=== PATIENT | female | born 1970 | race Caucasian/White ===

== ENCOUNTER 2021-08-07 16:29 | Inpatient (IN) | payer BC ==
[~2021-08-07 16:29] MED LIST: Dexamethasone 4 MG/ML 5 ML MDV IVPUSH ONE; Glycopyrrolate 0.2 MG/ML 5 ML MDV IV ONE; Lidocaine 2% 5 ML SDV INJECT ONE; Midazolam 1 MG/ML 2 ML SDV IV ONE; Neostigmine Methylsulfate 10 MG/10 ML MDV IVPUSH ONE; Ondansetron 4 MG/2 ML SDV IVPUSH ONE; Propofol 200 MG/20 ML SDV IV ONE; Rocuronium 100 MG/10 ML MDV IV ONE; Succinylcholine 200 MG/10 ML MDV IV ONE; fentaNYL 100 MCG/2 ML SDV IV ONE
[2021-08-07] MEDS ORDERED: Morphine 2 MG/ML SYRINGE IVPUSH STA (16:45)
[2021-08-07] MEDS ORDERED: Ondansetron 4 MG/2 ML SDV IVPUSH STA (16:45)
[2021-08-07] MEDS ORDERED: Sodium Chloride 0.9% 1,000 ML IV SCH (16:45)
[2021-08-07] MEDS ORDERED: Ketorolac 30 MG/ML SDV IVPUSH STA (16:45)
[2021-08-07] MEDS ORDERED: Iopamidol 755 Mg/ML 100 ML Bottle IV ONE (17:08)
--- NOTE | 2021-08-07 18:20 | EDM.PDOC ---
ED HPI GENERAL MEDICAL PROBLEM - General Stated Complaint: RLQ pain Time Seen by Provider: 08/07/21 16:30 Source of Information: Reports: Patient History Limitations: Reports: No Limitations - History of Present Illness INITIAL COMMENTS - FREE TEXT/NARRATIVE: Patient is a 51 YO WF who presented to the ED from the [facility] because of a RLQ and LLQ pain which started Friday and got worse today. The pain is sharp,10/10 with associated nausea and vomiting X 1. Yesterday she developed fever, chills. There is no urinary symptoms, she didn't have a bowell movement for 3 days now. Bilateral Lower Abdomen Pain Score (Numeric/FACES): 8 - Related Data Allergies Allergy/AdvReac Type Severity Reaction Status Date / Time Latex, Natural Rubber Allergy Rash Verified 08/07/21 19:16 lisinopril Allergy Cough Verified 08/07/21 19:16 Home Meds: Home Meds Losartan [Cozaar] 50 mg PO DAILY 08/07/21 [History] amLODIPine Besylate [Norvasc] 10 mg PO DAILY 08/07/21 [History] atorvaSTATin [Lipitor] 20 mg PO BEDTIME 08/07/21 [History] ED ROS GENERAL - Review of Systems Review Of Systems: See Below Constitutional: Reports: No Symptoms HEENT: Reports: No Symptoms Respiratory: Reports: No Symptoms Cardiovascular: Reports: No Symptoms Endocrine: Reports: No Symptoms GI/Abdominal: Reports: Abdominal Pain, Constipation, Nausea, Vomiting : Reports: No Symptoms Musculoskeletal: Reports: No Symptoms Skin: Reports: No Symptoms Neurological: Reports: No Symptoms ED EXAM, GI/ABD - Physical Exam Exam: See Below Exam Limited By: No Limitations General Appearance: Alert, No Apparent Distress Ears: Normal External Exam, Normal Canal, Hearing Grossly Normal Nose: Normal Inspection, Normal Mucosa, No Blood Throat/Mouth: Normal Inspection, Normal Lips, Normal Teeth, Normal Gums, Normal Oropharynx, Normal Voice Head: Atraumatic, Normocephalic Neck: Normal Inspection, Supple, Non-Tender, Full Range of Motion Respiratory/Chest: No Respiratory Distress, Lungs Clear, Normal Breath Sounds, No Accessory Muscle Use, Chest Non-Tender Cardiovascular: Normal Peripheral Pulses, Regular Rate, Rhythm, No Edema, No Gallop, No JVD, No Murmur, No Rub GI/Abdominal Exam: Normal Bowel Sounds, Soft, Other (Tenderness over the RLQ/LLQ and suprapubic area) Back Exam: Normal Inspection, Full Range of Motion Extremities: Normal Inspection, Normal Range of Motion, Non-Tender, No Pedal Edema, Normal Capillary Refill Neurological: Alert, Oriented, CN II-XII Intact, Normal Cognition, Normal Gait, Normal Reflexes, No Motor/Sensory Deficits Psychiatric: Normal Affect, Normal Mood Skin Exam: Warm Course - Vital Signs Text/Narrative:: Lab/CT resul was reviewed and discussed with patient NS 1 L bolus Zofran 4 mg IV x1 Toradol 30 mg IV x1 Morphine 2 mg IV x1 NPO Covid test-pending Case was discussed with Dr Nugent's Last Recorded V/S: Last Vital Signs Temp 36.9 C 08/08/21 12:00 Pulse 69 08/08/21 12:00 Resp 18 08/08/21 12:00 BP 109/65 08/08/21 12:00 Pulse Ox 96 08/08/21 12:00 - Orders/Labs/Meds Orders: Active Orders 24 hr Category Date Time Status Abdomen Pelvis w Cont [CT] Stat Exams 08/07/21 16:41 Taken Sodium Chloride 0.9% [Normal Saline] 1,000 ml Med 08/07/21 16:45 Active IV ASDIRECTED Sodium Chloride 0.9% [Saline Flush] Med 08/07/21 16:41 Active 10 ml FLUSH ASDIRECTED PRN Sodium Chloride 0.9% [Saline Flush] Med 08/07/21 19:15 Active 10 ml FLUSH ASDIRECTED PRN Peripheral IV Insertion Adult [OM.PC] Routine Oth 08/07/21 19:15 Ordered Saline Lock Insert [OM.PC] Routine Oth 08/07/21 16:41 Ordered Sequential Compression Device [OM.PC] Routine Oth 08/07/21 19:15 Ordered Resuscitation Status Routine Resus Stat 08/07/21 19:15 Ordered Medication Orders Acetaminophen (Acetaminophen 325 Mg Tab) 650 mg PO Q6H PRN PRN Reason: Pain Last Admin: 08/08/21 09:10 Dose: 650 mg Documented by: [id number] Admin: 08/08/21 03:04 Dose: 650 mg Documented by: DIFFCAL Hydrocodone Bitart/Acetaminophen (Acetaminophen/Hydrocodone 325-5 Mg Tab) 1 tab PO Q4H PRN PRN Reason: Pain (mild 1-3) Hydromorphone HCl (Hydromorphone 2 Mg/Ml Sdv) 1 mg IVPUSH Q1H PRN PRN Reason: Pain (moderate 4-6) Last Admin: 08/08/21 13:28 Dose: 1 mg Documented by: TOBI Sodium Chloride (Normal Saline) 1,000 mls @ 999 mls/hr IV ASDIRECTED [facility] Last Admin: 08/07/21 17:32 Dose: 999 mls/hr Documented by: BRENDA Lactated Ringer's (Ringers, Lactated) 1,000 mls @ 125 mls/hr IV ASDIRECTED [facility] Last Admin: 08/08/21 09:09 Dose: 125 mls/hr Documented by: Infusion: 08/08/21 08:00 Dose: 125 mls/hr Documented by: Admin: 08/08/21 00:00 Dose: 125 mls/hr Documented by: Infusion: 08/08/21 00:00 Dose: 125 mls/hr Documented by: Admin: 08/07/21 22:12 Dose: 125 mls/hr Documented by: TIERRA Piperacillin Sod/Tazobactam (Sod 3.375 gm/ Sodium Chloride) 50 mls @ 100 mls/hr IV Q6H [facility] Stop: 08/12/21 23:59 Last Admin: 08/08/21 14:28 Dose: 100 mls/hr Documented by: Admin: 08/08/21 08:22 Dose: 100 mls/hr Documented by: Admin: 08/08/21 02:09 Dose: 100 mls/hr Documented by: HONG Nicotine (Nicotine 21 Mg/24 Hr Patch) 21 mg TRDERM DAILY [facility] Last Admin: 08/08/21 09:10 Dose: 21 mg Documented by: GRAZYNA Promethazine HCl (Promethazine 25 Mg/Ml Sdv) 12.5 mg IM Q6H PRN PRN Reason: Nausea Last Admin: 08/08/21 13:22 Dose: 12.5 mg Documented by: TOBI Sodium Chloride (Sodium Chloride 0.9% 10 Ml Syringe) 10 ml FLUSH ASDIRECTED PRN PRN Reason: Keep Vein Open Last Admin: 08/08/21 02:10 Dose: 10 ml Documented by: HONG Sodium Chloride (Sodium Chloride 0.9% 10 Ml Syringe) 10 ml FLUSH ASDIRECTED PRN PRN Reason: Keep Vein Open Last Admin: 08/08/21 09:11 Dose: 10 ml Documented by: [id number] Admin: 08/08/21 08:23 Dose: 10 ml Documented by: [id number] Labs: Laboratory Tests 08/07/21 08/07/21 08/07/21 Range/Units 16:55 16:55 16:55 WBC 14.6 H (3.0-10.3) x10-3/uL RBC 4.16 (3.60-5.20) x10(6)uL Hgb 14.3 (11.4-15.5) g/dL Hct 42.8 (34.2-48.2) % MCV 103.0 H (76.7-100.5) fL MCH 34.4 H (23.9-33.9) pg MCHC 33.4 (31.9-34.8) g/dL RDW 12.4 (12.3-16.5) % Plt Count 274 (151-488) x10(3)uL MPV 8.8 (7.1-12.4) fL Neut % (Auto) 78.9 H (30.8-76.2) % Lymph % (Auto) 14.5 L (18.4-52.1) % Forrest % (Auto) 5.7 (4.4-15.7) % Eos % (Auto) 0.5 L (0.6-8.1) % Baso % (Auto) 0.4 (0.2-1.5) % Neut # (Auto) 11.5 H (1.5-6.3) x10-3/uL Lymph # (Auto) 2.1 (1.0-4.4) x10-3/uL Forrest # (Auto) 0.8 (0.3-1.0) x10-3/uL Eos # (Auto) 0.1 (0.0-0.8) x10-3/uL Baso # (Auto) 0.1 (0.0-0.1) x10-3/uL Sodium 138 (135-145) mmol/L Potassium 3.6 (3.5-5.3) mmol/L Chloride 101 (100-110) mmol/L Carbon Dioxide 23 (21-32) mmol/L BUN 7 (7-18) mg/dL Creatinine 0.5 L (0.55-1.02) mg/dL Est Cr Clr Drug Dosing TNP Estimated GFR (MDRD) > 60 (>60) BUN/Creatinine Ratio 14.0 (9-20) Glucose 116 (80-116) mg/dL Calcium 9.1 (8.6-10.2) mg/dL Total Bilirubin 0.9 (0.1-1.3) mg/dL AST 13 (5-25) IU/L ALT 36 (12-36) U/L Alkaline Phosphatase 96 (56-112) IU/L Total Protein 7.6 (6.0-8.0) g/dL Albumin 4.3 (3.5-5.2) g/dL Globulin 3.3 g/dL Albumin/Globulin Ratio 1.3 Amylase 47 (25-115) U/L Lipase 112 (73-393) U/L Urine Color (YELLOW) Urine Appearance (CLEAR) Urine pH (5.0-6.5) Ur Specific [place] (1.010-1.025) Urine Protein (NEGATIVE) mg/dL Urine Glucose (UA) (NORMAL) mg/dL Urine Ketones (NEGATIVE) mg/dL Urine Occult Blood (NEGATIVE) Urine Nitrite (NEGATIVE) Urine Bilirubin (NEGATIVE) Urine Urobilinogen (NEGATIVE) mg/dL Ur Leukocyte Esterase (NEGATIVE) U Hyaline Cast (Auto) (NS) Urine RBC (0-5) Urine WBC (0-5) Ur Squamous Epith Cells (NS,R,O) Urine Bacteria (NS) SARS-CoV-2 RNA (AURELIA) (NEGATIVE) 08/07/21 08/07/21 Range/Units 17:30 17:55 WBC (3.0-10.3) x10-3/uL RBC (3.60-5.20) x10(6)uL Hgb (11.4-15.5) g/dL Hct (34.2-48.2) % MCV (76.7-100.5) fL MCH (23.9-33.9) pg MCHC (31.9-34.8) g/dL RDW (12.3-16.5) % Plt Count (151-488) x10(3)uL MPV (7.1-12.4) fL Neut % (Auto) (30.8-76.2) % Lymph % (Auto) (18.4-52.1) % Forrest % (Auto) (4.4-15.7) % Eos % (Auto) (0.6-8.1) % Baso % (Auto) (0.2-1.5) % Neut # (Auto) (1.5-6.3) x10-3/uL Lymph # (Auto) (1.0-4.4) x10-3/uL Forrest # (Auto) (0.3-1.0) x10-3/uL Eos # (Auto) (0.0-0.8) x10-3/uL Baso # (Auto) (0.0-0.1) x10-3/uL Sodium (135-145) mmol/L Potassium (3.5-5.3) mmol/L Chloride (100-110) mmol/L Carbon Dioxide (21-32) mmol/L BUN (7-18) mg/dL Creatinine (0.55-1.02) mg/dL Est Cr Clr Drug Dosing Estimated GFR (MDRD) (>60) BUN/Creatinine Ratio (9-20) Glucose (80-116) mg/dL Calcium (8.6-10.2) mg/dL Total Bilirubin (0.1-1.3) mg/dL AST (5-25) IU/L ALT (12-36) U/L Alkaline Phosphatase (56-112) IU/L Total Protein (6.0-8.0) g/dL Albumin (3.5-5.2) g/dL Globulin g/dL Albumin/Globulin Ratio Amylase (25-115) U/L Lipase (73-393) U/L Urine Color Yellow (YELLOW) Urine Appearance Clear (CLEAR) Urine pH 5.0 (5.0-6.5) Ur Specific [place] 1.020 (1.010-1.025) Urine Protein Negative (NEGATIVE) mg/dL Urine Glucose (UA) Normal (NORMAL) mg/dL Urine Ketones 50 H (NEGATIVE) mg/dL Urine Occult Blood Moderate H (NEGATIVE) Urine Nitrite Negative (NEGATIVE) Urine Bilirubin Negative (NEGATIVE) Urine Urobilinogen Normal (NEGATIVE) mg/dL Ur Leukocyte Esterase Negative (NEGATIVE) U Hyaline Cast (Auto) Few H (NS) Urine RBC 5-10 H (0-5) Urine WBC 0-5 (0-5) Ur Squamous Epith Cells Few H (NS,R,O) Urine Bacteria Few H (NS) SARS-CoV-2 RNA (AURELIA) Negative (NEGATIVE) Meds: Medications Generic Name Dose Route Start Last Admin Trade Name Freq PRN Reason Stop Dose Admin Acetaminophen 650 mg 08/08/21 02:49 08/08/21 09:10 Acetaminophen 325 Mg Tab PO 650 mg Q6H PRN Administration Pain Hydrocodone Bitart/Acetaminophen 1 tab 08/07/21 21:04 Acetaminophen/Hydrocodone 325-5 Mg Tab PO Q4H PRN Pain (mild 1-3) Hydromorphone HCl 1 mg 08/07/21 21:04 08/08/21 13:28 Hydromorphone 2 Mg/Ml Sdv IVPUSH 1 mg Q1H PRN Administration Pain (moderate 4-6) Sodium Chloride 1,000 mls @ 999 mls/hr 08/07/21 16:45 08/07/21 17:32 Normal Saline IV 999 mls/hr ASDIRECTED ANA LILIA Administration Lactated Ringer's 1,000 mls @ 125 mls/hr 08/07/21 21:15 08/08/21 09:09 Ringers, Lactated IV 125 mls/hr ASDIRECTED ANA LILIA Administration Piperacillin Sod/Tazobactam 50 mls @ 100 mls/hr 08/08/21 02:00 08/08/21 14:28 Sod 3.375 gm/ Sodium Chloride IV 08/12/21 23:59 100 mls/hr Q6H ANA LILIA Administration Nicotine 21 mg 08/08/21 09:00 08/08/21 09:10 Nicotine 21 Mg/24 Hr Patch TRDERM 21 mg DAILY ANA LILIA Administration Promethazine HCl 12.5 mg 08/07/21 21:04 08/08/21 13:22 Promethazine 25 Mg/Ml Sdv IM 12.5 mg Q6H PRN Administration Nausea Sodium Chloride 10 ml 08/07/21 16:41 08/08/21 02:10 Sodium Chloride 0.9% 10 Ml Syringe FLUSH 10 ml ASDIRECTED PRN Administration Keep Vein Open Sodium Chloride 10 ml 08/07/21 19:15 08/08/21 09:11 Sodium Chloride 0.9% 10 Ml Syringe FLUSH 10 ml ASDIRECTED PRN Administration Keep Vein Open Discontinued Medications Generic Name Dose Route Start Last Admin Trade Name Freq PRN Reason Stop Dose Admin Cefoxitin Sodium 2 gm 08/07/21 18:41 08/07/21 18:47 Cefoxitin 2 Gm Vial IVPUSH 08/07/21 18:42 2 gm ONETIME ONE Administration Lactated Ringer's 1,000 mls @ 125 mls/hr 08/07/21 19:15 08/07/21 19:55 Ringers, Lactated IV 125 mls/hr ASDIRECTED ANA LILIA Administration Piperacillin Sod/Tazobactam 50 mls @ 100 mls/hr 08/07/21 20:15 08/08/21 04:49 Sod 3.375 gm/ Sodium Chloride IV Not Given Q6H ANA LILIA Iopamidol 80 ml 08/07/21 17:08 08/07/21 17:47 Iopamidol 755 Mg/Ml 100 Ml Bottle IV 08/07/21 17:09 80 ml . DIRECTED ONE Administration Ketorolac Tromethamine 30 mg 08/07/21 16:45 08/07/21 17:32 Ketorolac 30 Mg/Ml Sdv IVPUSH 08/07/21 16:46 30 mg NOW STA Administration Morphine Sulfate 2 mg 08/07/21 16:45 08/07/21 17:38 Morphine 2 Mg/Ml Syringe IVPUSH 08/07/21 16:46 2 mg NOW STA Administration Ondansetron HCl 4 mg 08/07/21 16:45 08/07/21 17:32 Ondansetron 4 Mg/2 Ml Sdv IVPUSH 08/07/21 16:46 4 mg NOW STA Administration Departure - Departure Time of Disposition: 18:25 Disposition: Refer to Observation Condition: Good Clinical Impression: Acute appendicitis, Peritonitis - Discharge Information Sepsis Event Note (ED) - Evaluation Sepsis Screening Result: No Definite Risk - My Orders Last 24 Hours: My Active Orders 08/07/21 16:41 Abdomen Pelvis w Cont [CT] Stat Sodium Chloride 0.9% [Saline Flush] 10 ml FLUSH ASDIRECTED PRN Saline Lock Insert [OM.PC] Routine 08/07/21 16:45 Sodium Chloride 0.9% [Normal Saline] 1,000 ml IV ASDIRECTED - Assessment/Plan Last 24 Hours: My Active Orders 08/07/21 16:41 Abdomen Pelvis w Cont [CT] Stat Sodium Chloride 0.9% [Saline Flush] 10 ml FLUSH ASDIRECTED PRN Saline Lock Insert [OM.PC] Routine 08/07/21 16:45 Sodium Chloride 0.9% [Normal Saline] 1,000 ml IV ASDIRECTED
[2021-08-07] MEDS ORDERED: cefOXitin 2 GM Vial IVPUSH ONE (18:41)
[2021-08-07] MEDS ORDERED: Lactated Ringers 1,000 ML IV SCH (19:15)
[2021-08-07] MEDS ORDERED: Piperacillin/Tazobactam 3.375 GM in Sodium Chloride 0.9% 50 ML IV SCH (20:15)
--- NOTE | 2021-08-07 21:04 | PCM.OPNOTE ---
- General Post-Op/Procedure Note Date of Surgery/Procedure: 08/07/21 Operative Procedure(s): Lap appy Pre Op Diagnosis: Perforated appy Post-Op Diagnosis: Same Anesthesia Technique: General ET Tube Primary Surgeon: Garrett Graves EBDong in mLs: 5 Complications: None Condition: Stable
--- NOTE | 2021-08-07 21:04 | PCM.HPR ---
H & P Addendum review - H & P Addendum Review Date of Original H & P: 08/07/21 Date Reviewed: 08/07/21 Time Reviewed: 19:00 Patient was Examined: No Changes (Ct and labs reviewed, pt examined. Consistent with acute appy. Will proceed with surgery. Risks and complications reviewed, consent obtained.)
[2021-08-07] MEDS: Lactated Ringers 1,000 ML IV SCH (22:12)
[2021-08-08] MEDS: Piperacillin/Tazobactam 3.375 GM in Sodium Chloride 0.9% 50 ML IV SCH ×4 (02:09→20:08)
[2021-08-08] MEDS: Sodium Chloride 0.9% 10 ML Syringe FLUSH PRN ×6 (02:10→20:40)
[2021-08-08] MEDS: Acetaminophen 325 MG Tab PO PRN ×2 (03:04→09:10)
--- NOTE | 2021-08-08 07:53 | OR ---
DATE OF OPERATION: 08/07/2021 SURGEON: Garrett Graves MD PREOPERATIVE DIAGNOSIS: Acute appendicitis. POSTOPERATIVE DIAGNOSIS: Perforated appendicitis. PROCEDURE: Laparoscopic appendectomy. ANESTHESIA: General. PROCEDURE IN DETAIL: The patient was brought to the operating room where general endotracheal anesthesia was administered. The abdomen was prepped and draped sterilely. An infraumbilical incision was made and extended into the peritoneal cavity without difficulty. The Huber cannula was introduced and pneumoperitoneum obtained. The patient was placed in Trendelenburg position and rotated to the left. 5 mm ports were placed in the suprapubic position and another one prison between the umbilicus and pubis. Exploration revealed an inflammatory appendix adherent to the right pelvic sidewall. By moving the small bowel and cecum, I was able to identify the inflammatory mass. I started to peel this off the pelvic sidewall and a contained perforation was apparent with stool leakage. As I was working on the appendix, stool was leaking from at least 2 spots. The tip of the appendix was found in the pelvis and I was able to deliver this cephalad into the abdomen. Because of the thick inflamed mesoappendix, I decided to transect the base of the appendix first and work retrograde. A window was made at the base of the appendix. I did have to clear off some adhesions and indurated fatty tissue off the base of the cecum to allow for a good staple line. An Endo-SHAWN 3.5 mm stapler was used to transect the appendix approximately 2 cm proximal to the main perforation. I was then able to take down the mesoappendix with 2 applications of the Endo-SHAWN 2.5 mm stapler. The main branch of the appendiceal artery did have some minimal oozing, so I did place 2 hemoclips on this. The appendix was placed in an Endopouch and brought out through the umbilical incision. Right lower quadrant was irrigated with a liter of saline. Any stool was removed. Hemostasis was assured. Ports were removed under direct vision and remained hemostatic. Umbilical fascia was closed with [id number] 0 Vicryl. Skin was closed with 4-0 Vicryl subcuticular sutures. Benzoin and Steri-Strips were placed and Band- Aids applied. The patient tolerated the procedure well. Estimated blood loss 5 mL. She returned to postanesthesia in stable condition. /[id number] MARYURI/HANY DOBBS
[2021-08-08] MEDS: Lactated Ringers 1,000 ML IV SCH ×3 (09:09→18:42)
[2021-08-08] MEDS: Nicotine 21 MG/24 Hr Patch TRDERM SCH (09:10)
--- NOTE | 2021-08-08 13:06 | PCM.SURGPN ---
- General Info Date of Service: 08/08/21 POD#: 1 Functional Status: Reports: Pain Controlled, Urinating, Other (no bowel fct yet) - Review of Systems General: Reports: No Symptoms Cardiovascular: Reports: No Symptoms Gastrointestinal: Reports: No Symptoms. Denies: Flatus - Patient Data Vitals - Most Recent: Last Vital Signs Temp 97.1 F 08/08/21 08:00 Pulse 67 08/08/21 08:00 Resp 20 08/08/21 08:00 BP 117/72 08/08/21 08:00 Pulse Ox 97 08/08/21 08:00 Weight - Most Recent: 72.348 kg I&O - Last 24 Hours: Intake & Output 08/07/21 08/08/21 08/08/21 22:59 06:59 14:59 Intake Total 10 Balance 10 Lab Results Last 24 Hrs: Laboratory Results - last 24 hr 08/07/21 08/07/21 08/07/21 Range/Units 16:55 16:55 16:55 WBC 14.6 H (3.0-10.3) x10-3/uL RBC 4.16 (3.60-5.20) x10(6)uL Hgb 14.3 (11.4-15.5) g/dL Hct 42.8 (34.2-48.2) % MCV 103.0 H (76.7-100.5) fL MCH 34.4 H (23.9-33.9) pg MCHC 33.4 (31.9-34.8) g/dL RDW 12.4 (12.3-16.5) % Plt Count 274 (151-488) x10(3)uL MPV 8.8 (7.1-12.4) fL Neut % (Auto) 78.9 H (30.8-76.2) % Lymph % (Auto) 14.5 L (18.4-52.1) % [place] % (Auto) 5.7 (4.4-15.7) % Eos % (Auto) 0.5 L (0.6-8.1) % Baso % (Auto) 0.4 (0.2-1.5) % Neut # (Auto) 11.5 H (1.5-6.3) x10-3/uL Lymph # (Auto) 2.1 (1.0-4.4) x10-3/uL [place] # (Auto) 0.8 (0.3-1.0) x10-3/uL Eos # (Auto) 0.1 (0.0-0.8) x10-3/uL Baso # (Auto) 0.1 (0.0-0.1) x10-3/uL Add Manual Diff Neutrophils % (Manual) (46-82) % Band Neutrophils % (0-6) % Lymphocytes % (Manual) (13-37) % Monocytes % (Manual) (4-12) % Sodium 138 (135-145) mmol/L Potassium 3.6 (3.5-5.3) mmol/L Chloride 101 (100-110) mmol/L Carbon Dioxide 23 (21-32) mmol/L BUN 7 (7-18) mg/dL Creatinine 0.5 L (0.55-1.02) mg/dL Est Cr Clr Drug Dosing TNP Estimated GFR (MDRD) > 60 (>60) BUN/Creatinine Ratio 14.0 (9-20) Glucose 116 (80-116) mg/dL Calcium 9.1 (8.6-10.2) mg/dL Total Bilirubin 0.9 (0.1-1.3) mg/dL AST 13 (5-25) IU/L ALT 36 (12-36) U/L Alkaline Phosphatase 96 (56-112) IU/L Total Protein 7.6 (6.0-8.0) g/dL Albumin 4.3 (3.5-5.2) g/dL Globulin 3.3 g/dL Albumin/Globulin Ratio 1.3 Amylase 47 (25-115) U/L Lipase 112 (73-393) U/L Urine Color (YELLOW) Urine Appearance (CLEAR) Urine pH (5.0-6.5) Ur Specific [place] (1.010-1.025) Urine Protein (NEGATIVE) mg/dL Urine Glucose (UA) (NORMAL) mg/dL Urine Ketones (NEGATIVE) mg/dL Urine Occult Blood (NEGATIVE) Urine Nitrite (NEGATIVE) Urine Bilirubin (NEGATIVE) Urine Urobilinogen (NEGATIVE) mg/dL Ur Leukocyte Esterase (NEGATIVE) U Hyaline Cast (Auto) (NS) Urine RBC (0-5) Urine WBC (0-5) Ur Squamous Epith Cells (NS,R,O) Urine Bacteria (NS) SARS-CoV-2 RNA (AURELIA) (NEGATIVE) 08/07/21 08/07/21 08/08/21 Range/Units 17:30 17:55 06:35 WBC 19.0 H (3.0-10.3) x10-3/uL RBC 3.64 (3.60-5.20) x10(6)uL Hgb 12.6 (11.4-15.5) g/dL Hct 37.7 (34.2-48.2) % MCV 103.4 H (76.7-100.5) fL MCH 34.5 H (23.9-33.9) pg MCHC 33.4 (31.9-34.8) g/dL RDW 12.4 (12.3-16.5) % Plt Count 240 (151-488) x10(3)uL MPV 9.1 (7.1-12.4) fL Neut % (Auto) (30.8-76.2) % Lymph % (Auto) (18.4-52.1) % [place] % (Auto) (4.4-15.7) % Eos % (Auto) (0.6-8.1) % Baso % (Auto) (0.2-1.5) % Neut # (Auto) (1.5-6.3) x10-3/uL Lymph # (Auto) (1.0-4.4) x10-3/uL [place] # (Auto) (0.3-1.0) x10-3/uL Eos # (Auto) (0.0-0.8) x10-3/uL Baso # (Auto) (0.0-0.1) x10-3/uL Add Manual Diff Yes Neutrophils % (Manual) 86 H (46-82) % Band Neutrophils % 6 (0-6) % Lymphocytes % (Manual) 6 L (13-37) % Monocytes % (Manual) 2 L (4-12) % Sodium (135-145) mmol/L Potassium (3.5-5.3) mmol/L Chloride (100-110) mmol/L Carbon Dioxide (21-32) mmol/L BUN (7-18) mg/dL Creatinine (0.55-1.02) mg/dL Est Cr Clr Drug Dosing Estimated GFR (MDRD) (>60) BUN/Creatinine Ratio (9-20) Glucose (80-116) mg/dL Calcium (8.6-10.2) mg/dL Total Bilirubin (0.1-1.3) mg/dL AST (5-25) IU/L ALT (12-36) U/L Alkaline Phosphatase (56-112) IU/L Total Protein (6.0-8.0) g/dL Albumin (3.5-5.2) g/dL Globulin g/dL Albumin/Globulin Ratio Amylase (25-115) U/L Lipase (73-393) U/L Urine Color Yellow (YELLOW) Urine Appearance Clear (CLEAR) Urine pH 5.0 (5.0-6.5) Ur Specific [place] 1.020 (1.010-1.025) Urine Protein Negative (NEGATIVE) mg/dL Urine Glucose (UA) Normal (NORMAL) mg/dL Urine Ketones 50 H (NEGATIVE) mg/dL Urine Occult Blood Moderate H (NEGATIVE) Urine Nitrite Negative (NEGATIVE) Urine Bilirubin Negative (NEGATIVE) Urine Urobilinogen Normal (NEGATIVE) mg/dL Ur Leukocyte Esterase Negative (NEGATIVE) U Hyaline Cast (Auto) Few H (NS) Urine RBC 5-10 H (0-5) Urine WBC 0-5 (0-5) Ur Squamous Epith Cells Few H (NS,R,O) Urine Bacteria Few H (NS) SARS-CoV-2 RNA (AURELIA) Negative (NEGATIVE) Med Orders - Current: Current Medications Acetaminophen (Acetaminophen 325 Mg Tab) 650 mg PO Q6H PRN PRN Reason: Pain Last Admin: 08/08/21 09:10 Dose: 650 mg Documented by: Hydrocodone Bitart/Acetaminophen (Acetaminophen/Hydrocodone 325-5 Mg Tab) 1 tab PO Q4H PRN PRN Reason: Pain (mild 1-3) Hydromorphone HCl (Hydromorphone 2 Mg/Ml Sdv) 1 mg IVPUSH Q1H PRN PRN Reason: Pain (moderate 4-6) Sodium Chloride (Normal Saline) 1,000 mls @ 999 mls/hr IV ASDIRECTED ANA LILIA Last Admin: 08/07/21 17:32 Dose: 999 mls/hr Documented by: Lactated Ringer's (Ringers, Lactated) 1,000 mls @ 125 mls/hr IV ASDIRECTED [facility] Last Admin: 08/08/21 09:09 Dose: 125 mls/hr Documented by: Piperacillin Sod/Tazobactam (Sod 3.375 gm/ Sodium Chloride) 50 mls @ 100 mls/hr IV Q6H [facility] Stop: 08/12/21 23:59 Last Admin: 08/08/21 08:22 Dose: 100 mls/hr Documented by: Nicotine (Nicotine 21 Mg/24 Hr Patch) 21 mg TRDERM DAILY [facility] Last Admin: 08/08/21 09:10 Dose: 21 mg Documented by: Promethazine HCl (Promethazine 25 Mg/Ml Sdv) 12.5 mg IM Q6H PRN PRN Reason: Nausea Sodium Chloride (Sodium Chloride 0.9% 10 Ml Syringe) 10 ml FLUSH ASDIRECTED PRN PRN Reason: Keep Vein Open Last Admin: 08/08/21 02:10 Dose: 10 ml Documented by: Sodium Chloride (Sodium Chloride 0.9% 10 Ml Syringe) 10 ml FLUSH ASDIRECTED PRN PRN Reason: Keep Vein Open Last Admin: 08/08/21 09:11 Dose: 10 ml Documented by: Discontinued Medications Cefoxitin Sodium (Cefoxitin 2 Gm Vial) 2 gm IVPUSH ONETIME ONE Stop: 08/07/21 18:42 Last Admin: 08/07/21 18:47 Dose: 2 gm Documented by: Lactated Ringer's (Ringers, Lactated) 1,000 mls @ 125 mls/hr IV ASDIRECTED [facility] Last Admin: 08/07/21 19:55 Dose: 125 mls/hr Documented by: Piperacillin Sod/Tazobactam (Sod 3.375 gm/ Sodium Chloride) 50 mls @ 100 mls/hr IV Q6H [facility] Last Admin: 08/08/21 04:49 Dose: Not Given Documented by: Iopamidol (Iopamidol 755 Mg/Ml 100 Ml Bottle) 80 ml IV . DIRECTED ONE Stop: 08/07/21 17:09 Last Admin: 08/07/21 17:47 Dose: 80 ml Documented by: Ketorolac Tromethamine (Ketorolac 30 Mg/Ml Sdv) 30 mg IVPUSH NOW STA Stop: 08/07/21 16:46 Last Admin: 08/07/21 17:32 Dose: 30 mg Documented by: Morphine Sulfate (Morphine 2 Mg/Ml Syringe) 2 mg IVPUSH NOW STA Stop: 08/07/21 16:46 Last Admin: 08/07/21 17:38 Dose: 2 mg Documented by: Ondansetron HCl (Ondansetron 4 Mg/2 Ml Sdv) 4 mg IVPUSH NOW STA Stop: 08/07/21 16:46 Last Admin: 08/07/21 17:32 Dose: 4 mg Documented by: - Exam Wound/Incisions: Dressing Dry and Intact General: Alert, Oriented GI/Abdominal Exam: Soft, Distended Sepsis Event Note - Evaluation Sepsis Screening Result: No Definite Risk - Focused Exam Vital Signs: Vital Signs Temp Pulse Resp BP Pulse Ox Pulse Ox 08/08/21 08:00 97.1 F 67 20 117/72 97 97 - Problem List Review Problem List Initiated/Reviewed/Updated: Yes - My Orders Last 24 Hours: Active Orders 24 hr Category Date Time Status Patient Status [ADT] Routine ADT 08/07/21 21:05 Active May Shower [RC] ASDIRECTED Care 08/07/21 21:04 Active Oxygen Therapy [RC] 08 Care 08/07/21 21:05 Active RT Incentive Spirometry [RC] Q2HWA Care 08/07/21 21:04 Active Vital Signs [RC] 00,04,08,12,16,20 Care 08/07/21 21:05 Active Clear Liquid Diet [DIET] Diet 08/08/21 Breakfast Ordered Abdomen Pelvis w Cont [CT] Stat Exams 08/07/21 16:41 Taken CBC WITH AUTO DIFF [HEME] Routine Lab 08/09/21 07:00 Ordered Acetaminophen [TylenoL] Med 08/08/21 02:49 Active 650 mg PO Q6H PRN Acetaminophen/HYDROcodone [[place] 325-5 MG] Med 08/07/21 21:04 Active 1 tab PO Q4H PRN HYDROmorphone [Dilaudid] Med 08/07/21 21:04 Active 1 mg IVPUSH Q1H PRN Lactated Ringers [Ringers, Lactated] 1,000 ml Med 08/07/21 21:15 Active IV ASDIRECTED Nicotine [Habitrol] Med 08/08/21 09:00 Active 21 mg TRDERM DAILY Piperacillin/Tazobactam [Zosyn] 3.375 gm Med 08/08/21 02:00 Active Sodium Chloride 0.9% [Normal Saline] 50 ml IV Q6H Promethazine [Phenergan] Med 08/07/21 21:04 Active 12.5 mg IM Q6H PRN Sodium Chloride 0.9% [Normal Saline] 1,000 ml Med 08/07/21 16:45 Active IV ASDIRECTED Sodium Chloride 0.9% [Saline Flush] Med 08/07/21 16:41 Active 10 ml FLUSH ASDIRECTED PRN Sodium Chloride 0.9% [Saline Flush] Med 08/07/21 19:15 Active 10 ml FLUSH ASDIRECTED PRN Peripheral IV Insertion Adult [OM.PC] Routine Oth 08/07/21 19:15 Ordered Saline Lock Insert [OM.PC] Routine Oth 08/07/21 16:41 Ordered Sequential Compression Device [OM.PC] Routine Oth 08/07/21 19:15 Ordered Resuscitation Status Routine Resus Stat 08/07/21 19:15 Ordered Medication Orders Acetaminophen (Acetaminophen 325 Mg Tab) 650 mg PO Q6H PRN PRN Reason: Pain Last Admin: 08/08/21 09:10 Dose: 650 mg Documented by: [id number] Admin: 08/08/21 03:04 Dose: 650 mg Documented by: HONG Hydrocodone Bitart/Acetaminophen (Acetaminophen/Hydrocodone 325-5 Mg Tab) 1 tab PO Q4H PRN PRN Reason: Pain (mild 1-3) Hydromorphone HCl (Hydromorphone 2 Mg/Ml Sdv) 1 mg IVPUSH Q1H PRN PRN Reason: Pain (moderate 4-6) Sodium Chloride (Normal Saline) 1,000 mls @ 999 mls/hr IV ASDIRECTED ANA L[facility]IA Last Admin: 08/07/21 17:32 Dose: 999 mls/hr Documented by: BRENDA Lactated Ringer's (Ringers, Lactated) 1,000 mls @ 125 mls/hr IV ASDIRECTED ANA L[facility]IA Last Admin: 08/08/21 09:09 Dose: 125 mls/hr Documented by: Infusion: 08/08/21 08:00 Dose: 125 mls/hr Documented by: Admin: 08/08/21 00:00 Dose: 125 mls/hr Documented by: Infusion: 08/08/21 00:00 Dose: 125 mls/hr Documented by: Admin: 08/07/21 22:12 Dose: 125 mls/hr Documented by: TIERRA Piperacillin Sod/Tazobactam (Sod 3.375 gm/ Sodium Chloride) 50 mls @ 100 mls/hr IV Q6H [facility] Stop: 08/12/21 23:59 Last Admin: 08/08/21 08:22 Dose: 100 mls/hr Documented by: Admin: 08/08/21 02:09 Dose: 100 mls/hr Documented by: HONG Nicotine (Nicotine 21 Mg/24 Hr Patch) 21 mg TRDERM DAILY [facility] Last Admin: 08/08/21 09:10 Dose: 21 mg Documented by: GRAZYNA Promethazine HCl (Promethazine 25 Mg/Ml Sdv) 12.5 mg IM Q6H PRN PRN Reason: Nausea Sodium Chloride (Sodium Chloride 0.9% 10 Ml Syringe) 10 ml FLUSH ASDIRECTED PRN PRN Reason: Keep Vein Open Last Admin: 08/08/21 02:10 Dose: 10 ml Documented by: HONG Sodium Chloride (Sodium Chloride 0.9% 10 Ml Syringe) 10 ml FLUSH ASDIRECTED PRN PRN Reason: Keep Vein Open Last Admin: 08/08/21 09:11 Dose: 10 ml Documented by: Admin: 08/08/21 08:23 Dose: 10 ml Documented by: GRAZYNA - Assessment Assessment (Free Text/Narrative):: Doing well POD #1 WBC 19K P) Cont as is,
[2021-08-08] MEDS: Promethazine 25 MG/ML SDV IM PRN (13:22)
[2021-08-08] MEDS: HYDROmorphone 2 MG/ML SDV IVPUSH PRN ×3 (13:28→20:13)
[2021-08-08] MEDS: Acetaminophen/HYDROcodone 325-5 MG Tab PO PRN ×2 (18:41→22:50)
[2021-08-09] MEDS: Piperacillin/Tazobactam 3.375 GM in Sodium Chloride 0.9% 50 ML IV SCH ×4 (02:27→20:18)
[2021-08-09] MEDS: Sodium Chloride 0.9% 10 ML Syringe FLUSH PRN ×5 (02:30→20:30)
[2021-08-09] MEDS: Lactated Ringers 1,000 ML IV SCH (03:05)
[2021-08-09] MEDS: Acetaminophen 325 MG Tab PO PRN ×3 (03:50→16:09)
[2021-08-09] MEDS: Nicotine 21 MG/24 Hr Patch TRDERM SCH (08:00)
--- NOTE | 2021-08-09 13:49 | PCM.SURGPN ---
- General Info Date of Service: 08/09/21 POD#: 2 Functional Status: Reports: Pain Controlled, Tolerating Diet - Review of Systems General: Reports: No Symptoms, Fever (low grade) Cardiovascular: Reports: No Symptoms Gastrointestinal: Reports: Abdominal Pain (better), Flatus - Patient Data Vitals - Most Recent: Last Vital Signs Temp 99.8 F 08/09/21 12:45 Pulse 90 08/09/21 12:45 Resp 18 08/09/21 12:45 BP 130/77 08/09/21 12:45 Pulse Ox 94 L 08/09/21 12:45 Weight - Most Recent: 72.348 kg I&O - Last 24 Hours: Intake & Output 08/08/21 08/09/21 08/09/21 22:59 06:59 14:59 Intake Total 1563 1025 282 Balance 1563 1025 282 Lab Results Last 24 Hrs: Laboratory Results - last 24 hr 08/09/21 Range/Units 06:25 WBC 12.9 H (3.0-10.3) x10-3/uL RBC 3.49 L (3.60-5.20) x10(6)uL Hgb 12.3 (11.4-15.5) g/dL Hct 36.3 (34.2-48.2) % MCV 103.9 H (76.7-100.5) fL MCH 35.3 H (23.9-33.9) pg MCHC 34.0 (31.9-34.8) g/dL RDW 12.6 (12.3-16.5) % Plt Count 228 (151-488) x10(3)uL MPV 9.2 (7.1-12.4) fL Add Manual Diff Yes Neutrophils % (Manual) 85 H (46-82) % Band Neutrophils % 1 (0-6) % Lymphocytes % (Manual) 12 L (13-37) % Monocytes % (Manual) 2 L (4-12) % Med Orders - Current: Current Medications Acetaminophen (Acetaminophen 325 Mg Tab) 650 mg PO Q6H PRN PRN Reason: Pain Last Admin: 08/09/21 10:22 Dose: 650 mg Documented by: Hydrocodone Bitart/Acetaminophen (Acetaminophen/Hydrocodone 325-5 Mg Tab) 1 tab PO Q4H PRN PRN Reason: Pain (mild 1-3) Last Admin: 08/08/21 22:50 Dose: 1 tab Documented by: Sodium Chloride (Normal Saline) 1,000 mls @ 999 mls/hr IV ASDIRECTED [facility] Last Admin: 08/07/21 17:32 Dose: 999 mls/hr Documented by: Lactated Ringer's (Ringers, Lactated) 1,000 mls @ 50 mls/hr IV ASDIRECTED [facility] Last Infusion: 08/09/21 09:30 Dose: 50 mls/hr Documented by: Piperacillin Sod/Tazobactam (Sod 3.375 gm/ Sodium Chloride) 50 mls @ 100 mls/hr IV Q6H [facility] Stop: 08/12/21 23:59 Last Admin: 08/09/21 13:32 Dose: 100 mls/hr Documented by: Ibuprofen (Ibuprofen 600 Mg Tab) 600 mg PO Q6H PRN PRN Reason: Pain Nicotine (Nicotine 21 Mg/24 Hr Patch) 21 mg TRDERM DAILY [facility] Last Admin: 08/09/21 08:00 Dose: 21 mg Documented by: Promethazine HCl (Promethazine 25 Mg/Ml Sdv) 12.5 mg IM Q6H PRN PRN Reason: Nausea Last Admin: 08/08/21 13:22 Dose: 12.5 mg Documented by: Sodium Chloride (Sodium Chloride 0.9% 10 Ml Syringe) 10 ml FLUSH ASDIRECTED PRN PRN Reason: Keep Vein Open Last Admin: 08/09/21 10:23 Dose: 10 ml Documented by: Sodium Chloride (Sodium Chloride 0.9% 10 Ml Syringe) 10 ml FLUSH ASDIRECTED PRN PRN Reason: Keep Vein Open Last Admin: 08/08/21 09:11 Dose: 10 ml Documented by: Discontinued Medications Cefoxitin Sodium (Cefoxitin 2 Gm Vial) 2 gm IVPUSH ONETIME ONE Stop: 08/07/21 18:42 Last Admin: 08/07/21 18:47 Dose: 2 gm Documented by: Hydromorphone HCl (Hydromorphone 2 Mg/Ml Sdv) 1 mg IVPUSH Q1H PRN PRN Reason: Pain (moderate 4-6) Last Admin: 08/08/21 20:13 Dose: 1 mg Documented by: Lactated Ringer's (Ringers, Lactated) 1,000 mls @ 125 mls/hr IV ASDIRECTED [facility] Last Admin: 08/07/21 19:55 Dose: 125 mls/hr Documented by: Piperacillin Sod/Tazobactam (Sod 3.375 gm/ Sodium Chloride) 50 mls @ 100 mls/hr IV Q6H [facility] Last Admin: 08/08/21 04:49 Dose: Not Given Documented by: Iopamidol (Iopamidol 755 Mg/Ml 100 Ml Bottle) 80 ml IV . DIRECTED ONE Stop: 08/07/21 17:09 Last Admin: 08/07/21 17:47 Dose: 80 ml Documented by: Ketorolac Tromethamine (Ketorolac 30 Mg/Ml Sdv) 30 mg IVPUSH NOW STA Stop: 08/07/21 16:46 Last Admin: 08/07/21 17:32 Dose: 30 mg Documented by: Morphine Sulfate (Morphine 2 Mg/Ml Syringe) 2 mg IVPUSH NOW STA Stop: 08/07/21 16:46 Last Admin: 08/07/21 17:38 Dose: 2 mg Documented by: Ondansetron HCl (Ondansetron 4 Mg/2 Ml Sdv) 4 mg IVPUSH NOW STA Stop: 08/07/21 16:46 Last Admin: 08/07/21 17:32 Dose: 4 mg Documented by: - Exam Wound/Incisions: Healing Well, Dressing Dry and Intact GI/Abdominal Exam: Soft, Non-Tender Sepsis Event Note - Evaluation Sepsis Screening Result: No Definite Risk - Focused Exam Vital Signs: Vital Signs Temp Pulse Resp BP Pulse Ox Pulse Ox 08/09/21 12:45 99.8 F 90 18 130/77 94 L 08/09/21 07:30 99.3 F 86 16 112/71 94 L 94 L 08/09/21 04:00 97 F 76 18 108/67 95 - Problem List Review Problem List Initiated/Reviewed/Updated: Yes - My Orders Last 24 Hours: Active Orders 24 hr Category Date Time Status Soft Diet [DIET] Diet 08/09/21 Lunch Active CBC WITH AUTO DIFF [HEME] Routine Lab 08/10/21 07:00 Ordered Ibuprofen [Motrin] Med 08/09/21 09:28 Active 600 mg PO Q6H PRN Medication Orders Acetaminophen (Acetaminophen 325 Mg Tab) 650 mg PO Q6H PRN PRN Reason: Pain Last Admin: 08/09/21 10:22 Dose: 650 mg Documented by: Admin: 08/09/21 03:50 Dose: 650 mg Documented by: Admin: 08/08/21 09:10 Dose: 650 mg Documented by: Admin: 08/08/21 03:04 Dose: 650 mg Documented by: HONG Hydrocodone Bitart/Acetaminophen (Acetaminophen/Hydrocodone 325-5 Mg Tab) 1 tab PO Q4H PRN PRN Reason: Pain (mild 1-3) Last Admin: 08/08/21 22:50 Dose: 1 tab Documented by: Admin: 08/08/21 18:41 Dose: 1 tab Documented by: GRAZYNA Sodium Chloride (Normal Saline) 1,000 mls @ 999 mls/hr IV ASDIRECTED [facility] Last Admin: 08/07/21 17:32 Dose: 999 mls/hr Documented by: BRENDA Lactated Ringer's (Ringers, Lactated) 1,000 mls @ 50 mls/hr IV ASDIRECTED [facility] Last Infusion: 08/09/21 09:30 Dose: 50 mls/hr Documented by: Admin: 08/09/21 03:05 Dose: 125 mls/hr Documented by: Infusion: 08/09/21 03:05 Dose: 125 mls/hr Documented by: Admin: 08/08/21 18:42 Dose: 125 mls/hr Documented by: Infusion: 08/08/21 17:09 Dose: 125 mls/hr Documented by: Admin: 08/08/21 09:09 Dose: 125 mls/hr Documented by: Infusion: 08/08/21 08:00 Dose: 125 mls/hr Documented by: Admin: 08/08/21 00:00 Dose: 125 mls/hr Documented by: Infusion: 08/08/21 00:00 Dose: 125 mls/hr Documented by: Admin: 08/07/21 22:12 Dose: 125 mls/hr Documented by: TIERRA Piperacillin Sod/Tazobactam (Sod 3.375 gm/ Sodium Chloride) 50 mls @ 100 mls/hr IV Q6H [facility] Stop: 08/12/21 23:59 Last Admin: 08/09/21 13:32 Dose: 100 mls/hr Documented by: Admin: 08/09/21 07:56 Dose: 100 mls/hr Documented by: Admin: 08/09/21 02:27 Dose: 100 mls/hr Documented by: Admin: 08/08/21 20:08 Dose: 100 mls/hr Documented by: Admin: 08/08/21 14:28 Dose: 100 mls/hr Documented by: Admin: 08/08/21 08:22 Dose: 100 mls/hr Documented by: Admin: 08/08/21 02:09 Dose: 100 mls/hr Documented by: HONG Ibuprofen (Ibuprofen 600 Mg Tab) 600 mg PO Q6H PRN PRN Reason: Pain Nicotine (Nicotine 21 Mg/24 Hr Patch) 21 mg TRDERM DAILY [facility] Last Admin: 08/09/21 08:00 Dose: 21 mg Documented by: Admin: 08/08/21 09:10 Dose: 21 mg Documented by: GRAZYNA Promethazine HCl (Promethazine 25 Mg/Ml Sdv) 12.5 mg IM Q6H PRN PRN Reason: Nausea Last Admin: 08/08/21 13:22 Dose: 12.5 mg Documented by: TOBI Sodium Chloride (Sodium Chloride 0.9% 10 Ml Syringe) 10 ml FLUSH ASDIRECTED PRN PRN Reason: Keep Vein Open Last Admin: 08/09/21 10:23 Dose: 10 ml Documented by: Admin: 08/09/21 08:00 Dose: 10 ml Documented by: Admin: 08/09/21 03:05 Dose: 10 ml Documented by: Admin: 08/09/21 02:30 Dose: 10 ml Documented by: Admin: 08/08/21 20:40 Dose: 10 ml Documented by: Admin: 08/08/21 20:13 Dose: 10 ml Documented by: Admin: 08/08/21 20:06 Dose: 10 ml Documented by: Admin: 08/08/21 02:10 Dose: 10 ml Documented by: HONG Sodium Chloride (Sodium Chloride 0.9% 10 Ml Syringe) 10 ml FLUSH ASDIRECTED PRN PRN Reason: Keep Vein Open Last Admin: 08/08/21 09:11 Dose: 10 ml Documented by: [id number] Admin: 08/08/21 08:23 Dose: 10 ml Documented by: [id number] - Assessment Assessment (Free Text/Narrative):: Doing well - Plan Plan (Free Text/Narrative):: P) Cont as is,
[2021-08-09] MEDS: Promethazine 25 MG/ML SDV IM PRN (16:10)
[2021-08-09] MEDS ORDERED: Morphine 2 MG/ML SYRINGE IVPUSH PRN (17:19)
--- NOTE | 2021-08-09 17:33 | PCM.SN.2 ---
- Free Text/Narrative Note: Patient had sudden onset severe abd pain, right shoulder pain and T 101.3. CT shows no free air, fluid in pelvis, possible abscess. WBC 12.2 She is feeling better now, Will keep NPO and recheck labs in am. Time Documentation
[2021-08-09] MEDS: D5 1/2 NS w/ 20 mEq/L KCl 1,000 ML IV SCH (17:47)
--- NOTE | 2021-08-09 18:36 | CT ---
INDICATION: Abdominal pain and fever two days after surgery - status post laparoscopic appendectomy 08/07/21. Acute abdomen. CT ABDOMEN AND PELVIS WITH IV CONTRAST: Spiral 3.75 mm axial sections were obtained through the abdomen and pelvis with sagittal and coronal reconstructions utilizing 82 mL Isovue-370 at 2.3 mL/second 08/09/21 and compared with 08/07/21. TOTAL EXAM DLP: 513.54 mGy/cm. Postappendectomy change is noted with suture line that appears grossly intact in the right lower quadrant. There is some fluid in that area, which may be on the basis of abdominal lavage during surgery. There is some fluid in the paracolic gutter on the right additionally. In the lower pelvis, posterior to the urinary bladder and anterior to the rectum, there is a fluid collection, which is roughly oval in shape, measuring 64 mm anteroposteriorly and 64 mm transversely and craniocaudad diameter of 37 mm. This cystic mass has a thick rind and is completely new compared with the previous examination. The likelihood of an abscess with this appearance is high, although there is a very short interval from the surgery, making it very unusual. The urinary bladder appeared normal. 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 No definite bowel obstruction was seen. No evidence of free air was identified. Other findings are unchanged from the previous examination, except to note in the lung bases bilaterally, pleuroparenchymal changes, which may be on the basis of pneumonia and pleuritis, but should be correlated clinically. At least a moderate degree of atelectasis could also be present with this appearance. IMPRESSION: 1. 6.0 cm abscess suggested in the lower mid pelvis anterior to the rectum and posterior to the urinary bladder. 2. Pleuroparenchymal changes, bibasilar, which may be on the basis of pneumonia, pleuritis and/or atelectasis. 3. Postappendectomy change. 4. No free air is noted. Report was given in person to Dr. Graves immediately after the examination was completed. DILIA
[2021-08-09] MEDS ORDERED: Iopamidol 755 Mg/ML 100 ML Bottle IV ONE (19:08)
[2021-08-09] MEDS: Acetaminophen/HYDROcodone 325-5 MG Tab PO PRN (20:42)
[2021-08-10] MEDS: Acetaminophen/HYDROcodone 325-5 MG Tab PO PRN ×2 (00:50→06:51)
[2021-08-10] MEDS: Piperacillin/Tazobactam 3.375 GM in Sodium Chloride 0.9% 50 ML IV SCH ×4 (02:04→21:58)
[2021-08-10] MEDS: D5 1/2 NS w/ 20 mEq/L KCl 1,000 ML IV SCH ×2 (02:55→11:36)
[2021-08-10] MEDS: Nicotine 21 MG/24 Hr Patch TRDERM SCH (08:15)
[2021-08-10] MEDS: Sodium Chloride 0.9% 10 ML Syringe FLUSH PRN (08:18)
--- NOTE | 2021-08-10 11:35 | PCM.SURGPN ---
- General Info Date of Service: 08/10/21 POD#: 3 Functional Status: Reports: Pain Controlled, Ambulating, Incentive Spirometry (to 1500) - Review of Systems General: Reports: No Symptoms. Denies: Fever Pulmonary: Reports: No Symptoms Cardiovascular: Reports: No Symptoms Gastrointestinal: Reports: Abdominal Pain (much better, having formed stool), Flatus - Patient Data Vitals - Most Recent: Last Vital Signs Temp 98.6 F 08/10/21 08:30 Pulse 95 08/10/21 08:30 Resp 18 08/10/21 08:30 BP 130/87 08/10/21 08:30 Pulse Ox 94 L 08/10/21 08:30 Weight - Most Recent: 72.348 kg I&O - Last 24 Hours: Intake & Output 08/09/21 08/10/21 08/10/21 22:59 06:59 14:59 Intake Total 533 594 228 Balance 533 594 228 Lab Results Last 24 Hrs: Laboratory Results - last 24 hr 08/09/21 08/09/21 08/10/21 Range/Units 16:52 16:52 06:35 WBC 12.2 H 11.1 H (3.0-10.3) x10-3/uL RBC 3.39 L 3.28 L (3.60-5.20) x10(6)uL Hgb 11.6 11.4 (11.4-15.5) g/dL Hct 35.1 33.9 L (34.2-48.2) % MCV 103.6 H 103.3 H (76.7-100.5) fL MCH 34.3 H 34.8 H (23.9-33.9) pg MCHC 33.1 33.7 (31.9-34.8) g/dL RDW 12.4 12.6 (12.3-16.5) % Plt Count 238 238 (151-488) x10(3)uL MPV 8.9 8.8 (7.1-12.4) fL Neut % (Auto) 79.6 H 79.6 H (30.8-76.2) % Lymph % (Auto) 15.2 L 13.7 L (18.4-52.1) % [place] % (Auto) 4.2 L 5.6 (4.4-15.7) % Eos % (Auto) 0.6 0.4 L (0.6-8.1) % Baso % (Auto) 0.4 0.7 (0.2-1.5) % Neut # (Auto) 9.7 H 8.9 H (1.5-6.3) x10-3/uL Lymph # (Auto) 1.8 1.5 (1.0-4.4) x10-3/uL [place] # (Auto) 0.5 0.6 (0.3-1.0) x10-3/uL Eos # (Auto) 0.1 0.0 (0.0-0.8) x10-3/uL Baso # (Auto) 0.1 0.1 (0.0-0.1) x10-3/uL Sodium 142 (135-145) mmol/L Potassium 3.4 L (3.5-5.3) mmol/L Chloride 106 D (100-110) mmol/L Carbon Dioxide 24 (21-32) mmol/L BUN 5 L (7-18) mg/dL Creatinine 0.7 (0.55-1.02) mg/dL Est Cr Clr Drug Dosing 88.01 mL/min Estimated GFR (MDRD) > 60 (>60) BUN/Creatinine Ratio 7.1 L (9-20) Glucose 103 (80-116) mg/dL Calcium 8.4 L (8.6-10.2) mg/dL Med Orders - Current: Current Medications Acetaminophen (Acetaminophen 325 Mg Tab) 650 mg PO Q6H PRN PRN Reason: Pain Last Admin: 08/09/21 16:09 Dose: 650 mg Documented by: Hydrocodone Bitart/Acetaminophen (Acetaminophen/Hydrocodone 325-5 Mg Tab) 1 tab PO Q4H PRN PRN Reason: Pain (mild 1-3) Last Admin: 08/10/21 06:51 Dose: 1 tab Documented by: Sodium Chloride (Normal Saline) 1,000 mls @ 999 mls/hr IV ASDIRECTED ANA LILIA Last Admin: 08/07/21 17:32 Dose: 999 mls/hr Documented by: Piperacillin Sod/Tazobactam (Sod 3.375 gm/ Sodium Chloride) 50 mls @ 100 mls/hr IV Q6H ANA LILIA Stop: 08/12/21 23:59 Last Admin: 08/10/21 08:18 Dose: 100 mls/hr Documented by: Potassium Chloride/Dextrose/Sod Cl (D5 1/2 Ns W/ 20 Meq/L Kcl) 1,000 mls @ 75 mls/hr IV ASDIRECTED [facility] Last Admin: 08/10/21 02:55 Dose: 125 mls/hr Documented by: Ibuprofen (Ibuprofen 600 Mg Tab) 600 mg PO Q6H PRN PRN Reason: Pain Morphine Sulfate (Morphine 2 Mg/Ml Syringe) 2 mg IVPUSH Q2H PRN PRN Reason: Abdominal Pain Last Admin: 08/09/21 21:00 Dose: 2 mg Documented by: Nicotine (Nicotine 21 Mg/24 Hr Patch) 21 mg TRDERM DAILY [facility] Last Admin: 08/10/21 08:15 Dose: 21 mg Documented by: Promethazine HCl (Promethazine 25 Mg/Ml Sdv) 12.5 mg IM Q6H PRN PRN Reason: Nausea Last Admin: 08/09/21 16:10 Dose: 12.5 mg Documented by: Sodium Chloride (Sodium Chloride 0.9% 10 Ml Syringe) 10 ml FLUSH ASDIRECTED PRN PRN Reason: Keep Vein Open Last Admin: 08/10/21 08:18 Dose: 10 ml Documented by: Sodium Chloride (Sodium Chloride 0.9% 10 Ml Syringe) 10 ml FLUSH ASDIRECTED PRN PRN Reason: Keep Vein Open Last Admin: 08/08/21 09:11 Dose: 10 ml Documented by: Discontinued Medications Cefoxitin Sodium (Cefoxitin 2 Gm Vial) 2 gm IVPUSH ONETIME ONE Stop: 08/07/21 18:42 Last Admin: 08/07/21 18:47 Dose: 2 gm Documented by: Hydromorphone HCl (Hydromorphone 2 Mg/Ml Sdv) 1 mg IVPUSH Q1H PRN PRN Reason: Pain (moderate 4-6) Last Admin: 08/08/21 20:13 Dose: 1 mg Documented by: Lactated Ringer's (Ringers, Lactated) 1,000 mls @ 125 mls/hr IV ASDIRECTED [facility] Last Admin: 08/07/21 19:55 Dose: 125 mls/hr Documented by: Piperacillin Sod/Tazobactam (Sod 3.375 gm/ Sodium Chloride) 50 mls @ 100 mls/hr IV Q6H [facility] Last Admin: 08/08/21 04:49 Dose: Not Given Documented by: Lactated Ringer's (Ringers, Lactated) 1,000 mls @ 125 mls/hr IV ASDIRECTED [facility] Last Infusion: 08/09/21 09:30 Dose: 50 mls/hr Documented by: Iopamidol (Iopamidol 755 Mg/Ml 100 Ml Bottle) 80 ml IV . DIRECTED ONE Stop: 08/07/21 17:09 Last Admin: 08/07/21 17:47 Dose: 80 ml Documented by: Iopamidol (Iopamidol 755 Mg/Ml 100 Ml Bottle) 82 ml IV . DIRECTED ONE Stop: 08/09/21 19:09 Last Admin: 08/09/21 17:00 Dose: 82 ml Documented by: Ketorolac Tromethamine (Ketorolac 30 Mg/Ml Sdv) 30 mg IVPUSH NOW STA Stop: 08/07/21 16:46 Last Admin: 08/07/21 17:32 Dose: 30 mg Documented by: Morphine Sulfate (Morphine 2 Mg/Ml Syringe) 2 mg IVPUSH NOW STA Stop: 08/07/21 16:46 Last Admin: 08/07/21 17:38 Dose: 2 mg Documented by: Ondansetron HCl (Ondansetron 4 Mg/2 Ml Sdv) 4 mg IVPUSH NOW STA Stop: 08/07/21 16:46 Last Admin: 08/07/21 17:32 Dose: 4 mg Documented by: - Exam Wound/Incisions: Healing Well General: Alert, Oriented Lungs: Clear to Auscultation, Normal Respiratory Effort Cardiovascular: Regular Rate, Regular Rhythm GI/Abdominal Exam: Soft, Non-Tender, Distended (moderate) Sepsis Event Note - Evaluation Sepsis Screening Result: No Definite Risk - Focused Exam Vital Signs: Vital Signs Temp Pulse Resp BP Pulse Ox Pulse Ox 08/10/21 08:30 98.6 F 95 18 130/87 94 L 94 L 08/10/21 04:00 99.1 F 86 14 121/74 96 08/10/21 00:00 98.7 F 88 16 130/83 95 - Problem List Review Problem List Initiated/Reviewed/Updated: Yes - My Orders Last 24 Hours: Active Orders 24 hr Category Date Time Status Clear Liquid Diet [DIET] Diet 08/10/21 Dinner Ordered BASIC METABOLIC PANEL,BMP [CHEM] Routine Lab 08/11/21 07:00 Ordered CBC WITH AUTO DIFF [HEME] Routine Lab 08/11/21 07:00 Ordered D5 1/2 NS w/ 20 mEq/L KCl 1,000 ml Med 08/09/21 17:30 Active IV ASDIRECTED Morphine Med 08/09/21 17:19 Active 2 mg IVPUSH Q2H PRN Medication Orders Acetaminophen (Acetaminophen 325 Mg Tab) 650 mg PO Q6H PRN PRN Reason: Pain Last Admin: 08/09/21 16:09 Dose: 650 mg Documented by: Admin: 08/09/21 10:22 Dose: 650 mg Documented by: Admin: 08/09/21 03:50 Dose: 650 mg Documented by: Admin: 08/08/21 09:10 Dose: 650 mg Documented by: Admin: 08/08/21 03:04 Dose: 650 mg Documented by: HONG Hydrocodone Bitart/Acetaminophen (Acetaminophen/Hydrocodone 325-5 Mg Tab) 1 tab PO Q4H PRN PRN Reason: Pain (mild 1-3) Last Admin: 08/10/21 06:51 Dose: 1 tab Documented by: Admin: 08/10/21 00:50 Dose: 1 tab Documented by: Admin: 08/09/21 20:42 Dose: 1 tab Documented by: Admin: 08/08/21 22:50 Dose: 1 tab Documented by: Admin: 08/08/21 18:41 Dose: 1 tab Documented by: GRAZYNA Sodium Chloride (Normal Saline) 1,000 mls @ 999 mls/hr IV ASDIRECTED ANA LILIA Last Admin: 08/07/21 17:32 Dose: 999 mls/hr Documented by: BRENDA Piperacillin Sod/Tazobactam (Sod 3.375 gm/ Sodium Chloride) 50 mls @ 100 mls/hr IV Q6H ANA LILIA Stop: 08/12/21 23:59 Last Admin: 08/10/21 08:18 Dose: 100 mls/hr Documented by: Admin: 08/10/21 02:04 Dose: 100 mls/hr Documented by: Admin: 08/09/21 20:18 Dose: 100 mls/hr Documented by: Admin: 08/09/21 13:32 Dose: 100 mls/hr Documented by: Admin: 08/09/21 07:56 Dose: 100 mls/hr Documented by: Admin: 08/09/21 02:27 Dose: 100 mls/hr Documented by: Admin: 08/08/21 20:08 Dose: 100 mls/hr Documented by: Admin: 08/08/21 14:28 Dose: 100 mls/hr Documented by: Admin: 08/08/21 08:22 Dose: 100 mls/hr Documented by: Admin: 08/08/21 02:09 Dose: 100 mls/hr Documented by: HONG Potassium Chloride/Dextrose/Sod Cl (D5 1/2 Ns W/ 20 Meq/L Kcl) 1,000 mls @ 75 mls/hr IV ASDIRECTED [facility] Last Admin: 08/10/21 02:55 Dose: 125 mls/hr Documented by: Infusion: 08/10/21 01:47 Dose: 125 mls/hr Documented by: Admin: 08/09/21 17:47 Dose: 125 mls/hr Documented by: DANYELLE Ibuprofen (Ibuprofen 600 Mg Tab) 600 mg PO Q6H PRN PRN Reason: Pain Morphine Sulfate (Morphine 2 Mg/Ml Syringe) 2 mg IVPUSH Q2H PRN PRN Reason: Abdominal Pain Last Admin: 08/09/21 21:00 Dose: 2 mg Documented by: PRASANTH Nicotine (Nicotine 21 Mg/24 Hr Patch) 21 mg TRDERM DAILY [facility] Last Admin: 08/10/21 08:15 Dose: 21 mg Documented by: Admin: 08/09/21 08:00 Dose: 21 mg Documented by: Admin: 08/08/21 09:10 Dose: 21 mg Documented by: GRAZYNA Promethazine HCl (Promethazine 25 Mg/Ml Sdv) 12.5 mg IM Q6H PRN PRN Reason: Nausea Last Admin: 08/09/21 16:10 Dose: 12.5 mg Documented by: Admin: 08/08/21 13:22 Dose: 12.5 mg Documented by: TOBI Sodium Chloride (Sodium Chloride 0.9% 10 Ml Syringe) 10 ml FLUSH ASDIRECTED PRN PRN Reason: Keep Vein Open Last Admin: 08/10/21 08:18 Dose: 10 ml Documented by: Admin: 08/09/21 20:30 Dose: 10 ml Documented by: Admin: 08/09/21 10:23 Dose: 10 ml Documented by: Admin: 08/09/21 08:00 Dose: 10 ml Documented by: Admin: 08/09/21 03:05 Dose: 10 ml Documented by: Admin: 08/09/21 02:30 Dose: 10 ml Documented by: Admin: 08/08/21 20:40 Dose: 10 ml Documented by: Admin: 08/08/21 20:13 Dose: 10 ml Documented by: Admin: 08/08/21 20:06 Dose: 10 ml Documented by: Admin: 08/08/21 02:10 Dose: 10 ml Documented by: HONG Sodium Chloride (Sodium Chloride 0.9% 10 Ml Syringe) 10 ml FLUSH ASDIRECTED PRN PRN Reason: Keep Vein Open Last Admin: 08/08/21 09:11 Dose: 10 ml Documented by: [email or web address] Admin: 08/08/21 08:23 Dose: 10 ml Documented by: GRAZYNA - Assessment Assessment (Free Text/Narrative):: Doing well - Plan Plan (Free Text/Narrative):: Restart cleat liquids, cont as is, recheck labs in am
[2021-08-10] MEDS: Ibuprofen 600 MG Tab PO PRN ×3 (11:38→23:41)
[2021-08-11] MEDS: D5 1/2 NS w/ 20 mEq/L KCl 1,000 ML IV SCH ×3 (02:33→23:03)
[2021-08-11] MEDS: Piperacillin/Tazobactam 3.375 GM in Sodium Chloride 0.9% 50 ML IV SCH ×4 (02:44→19:53)
[2021-08-11] MEDS: Ibuprofen 600 MG Tab PO PRN ×2 (06:31→13:41)
[2021-08-11] MEDS: Nicotine 21 MG/24 Hr Patch TRDERM SCH (07:59)
--- NOTE | 2021-08-11 09:15 | PCM.SURGPN ---
- General Info Date of Service: 08/11/21 POD#: 4 Functional Status: Reports: Pain Controlled, Tolerating Diet (diarrhea after drinking), Ambulating, Incentive Spirometry (1750) - Review of Systems General: Reports: No Symptoms. Denies: Fever Gastrointestinal: Reports: No Symptoms. Denies: Abdominal Pain - Patient Data Vitals - Most Recent: Last Vital Signs Temp 97.9 F 08/11/21 08:00 Pulse 73 08/11/21 08:00 Resp 18 08/11/21 08:00 BP 122/77 08/11/21 08:00 Pulse Ox 96 08/11/21 08:00 Weight - Most Recent: 72.348 kg I&O - Last 24 Hours: Intake & Output 08/10/21 08/11/21 08/11/21 22:59 06:59 14:59 Intake Total 793 500 Balance 793 500 Lab Results Last 24 Hrs: Laboratory Results - last 24 hr 08/11/21 08/11/21 Range/Units 06:25 06:25 WBC 9.9 (3.0-10.3) x10-3/uL RBC 3.31 L (3.60-5.20) x10(6)uL Hgb 11.6 (11.4-15.5) g/dL Hct 34.5 (34.2-48.2) % MCV 104.1 H (76.7-100.5) fL MCH 35.2 H (23.9-33.9) pg MCHC 33.8 (31.9-34.8) g/dL RDW 12.3 (12.3-16.5) % Plt Count 267 (151-488) x10(3)uL MPV 8.8 (7.1-12.4) fL Neut % (Auto) 77.9 H (30.8-76.2) % Lymph % (Auto) 14.0 L (18.4-52.1) % [place] % (Auto) 5.9 (4.4-15.7) % Eos % (Auto) 1.7 (0.6-8.1) % Baso % (Auto) 0.5 (0.2-1.5) % Neut # (Auto) 7.7 H (1.5-6.3) x10-3/uL Lymph # (Auto) 1.4 (1.0-4.4) x10-3/uL [place] # (Auto) 0.6 (0.3-1.0) x10-3/uL Eos # (Auto) 0.2 (0.0-0.8) x10-3/uL Baso # (Auto) 0.1 (0.0-0.1) x10-3/uL Sodium 145 (135-145) mmol/L Potassium 3.5 (3.5-5.3) mmol/L Chloride 108 (100-110) mmol/L Carbon Dioxide 28 (21-32) mmol/L BUN 2 L (7-18) mg/dL Creatinine 0.6 (0.55-1.02) mg/dL Est Cr Clr Drug Dosing 102.68 mL/min Estimated GFR (MDRD) > 60 (>60) BUN/Creatinine Ratio 3.3 L (9-20) Glucose 110 (80-116) mg/dL Calcium 8.4 L (8.6-10.2) mg/dL Med Orders - Current: Current Medications Acetaminophen (Acetaminophen 325 Mg Tab) 650 mg PO Q6H PRN PRN Reason: Pain Last Admin: 08/09/21 16:09 Dose: 650 mg Documented by: Hydrocodone Bitart/Acetaminophen (Acetaminophen/Hydrocodone 325-5 Mg Tab) 1 tab PO Q4H PRN PRN Reason: Pain (mild 1-3) Last Admin: 08/10/21 06:51 Dose: 1 tab Documented by: Sodium Chloride (Normal Saline) 1,000 mls @ 999 mls/hr IV ASDIRECTED [facility] Last Admin: 08/07/21 17:32 Dose: 999 mls/hr Documented by: Piperacillin Sod/Tazobactam (Sod 3.375 gm/ Sodium Chloride) 50 mls @ 100 mls/hr IV Q6H [facility] Stop: 08/12/21 23:59 Last Admin: 08/11/21 07:51 Dose: 100 mls/hr Documented by: Potassium Chloride/Dextrose/Sod Cl (D5 1/2 Ns W/ 20 Meq/L Kcl) 1,000 mls @ 50 mls/hr IV Q13H [facility] Last Admin: 08/11/21 02:33 Dose: 75 mls/hr Documented by: Ibuprofen (Ibuprofen 600 Mg Tab) 600 mg PO Q6H PRN PRN Reason: Pain Last Admin: 08/11/21 06:31 Dose: 600 mg Documented by: Morphine Sulfate (Morphine 2 Mg/Ml Syringe) 2 mg IVPUSH Q2H PRN PRN Reason: Abdominal Pain Last Admin: 08/09/21 21:00 Dose: 2 mg Documented by: Nicotine (Nicotine 21 Mg/24 Hr Patch) 21 mg TRDERM DAILY [facility] Last Admin: 08/11/21 07:59 Dose: 21 mg Documented by: Promethazine HCl (Promethazine 25 Mg/Ml Sdv) 12.5 mg IM Q6H PRN PRN Reason: Nausea Last Admin: 08/09/21 16:10 Dose: 12.5 mg Documented by: Sodium Chloride (Sodium Chloride 0.9% 10 Ml Syringe) 10 ml FLUSH ASDIRECTED PRN PRN Reason: Keep Vein Open Last Admin: 08/10/21 08:18 Dose: 10 ml Documented by: Sodium Chloride (Sodium Chloride 0.9% 10 Ml Syringe) 10 ml FLUSH ASDIRECTED PRN PRN Reason: Keep Vein Open Last Admin: 08/08/21 09:11 Dose: 10 ml Documented by: Discontinued Medications Cefoxitin Sodium (Cefoxitin 2 Gm Vial) 2 gm IVPUSH ONETIME ONE Stop: 08/07/21 18:42 Last Admin: 08/07/21 18:47 Dose: 2 gm Documented by: Hydromorphone HCl (Hydromorphone 2 Mg/Ml Sdv) 1 mg IVPUSH Q1H PRN PRN Reason: Pain (moderate 4-6) Last Admin: 08/08/21 20:13 Dose: 1 mg Documented by: Lactated Ringer's (Ringers, Lactated) 1,000 mls @ 125 mls/hr IV ASDIRECTED [facility] Last Admin: 08/07/21 19:55 Dose: 125 mls/hr Documented by: Piperacillin Sod/Tazobactam (Sod 3.375 gm/ Sodium Chloride) 50 mls @ 100 mls/hr IV Q6H [facility] Last Admin: 08/08/21 04:49 Dose: Not Given Documented by: Lactated Ringer's (Ringers, Lactated) 1,000 mls @ 125 mls/hr IV ASDIRECTED [facility] Last Infusion: 08/09/21 09:30 Dose: 50 mls/hr Documented by: Potassium Chloride/Dextrose/Sod Cl (D5 1/2 Ns W/ 20 Meq/L Kcl) 1,000 mls @ 75 mls/hr IV ASDIRECTED ANA L[facility]IA Stop: 08/10/21 23:59 Last Infusion: 08/10/21 11:36 Dose: 75 mls/hr Documented by: Iopamidol (Iopamidol 755 Mg/Ml 100 Ml Bottle) 80 ml IV . DIRECTED ONE Stop: 08/07/21 17:09 Last Admin: 08/07/21 17:47 Dose: 80 ml Documented by: Iopamidol (Iopamidol 755 Mg/Ml 100 Ml Bottle) 82 ml IV . DIRECTED ONE Stop: 08/09/21 19:09 Last Admin: 08/09/21 17:00 Dose: 82 ml Documented by: Ketorolac Tromethamine (Ketorolac 30 Mg/Ml Sdv) 30 mg IVPUSH NOW STA Stop: 08/07/21 16:46 Last Admin: 08/07/21 17:32 Dose: 30 mg Documented by: Morphine Sulfate (Morphine 2 Mg/Ml Syringe) 2 mg IVPUSH NOW STA Stop: 08/07/21 16:46 Last Admin: 08/07/21 17:38 Dose: 2 mg Documented by: Ondansetron HCl (Ondansetron 4 Mg/2 Ml Sdv) 4 mg IVPUSH NOW STA Stop: 08/07/21 16:46 Last Admin: 08/07/21 17:32 Dose: 4 mg Documented by: - Exam Wound/Incisions: Healing Well General: Alert, Oriented GI/Abdominal Exam: Soft, Non-Tender, No Distention Sepsis Event Note - Evaluation Sepsis Screening Result: No Definite Risk - Focused Exam Vital Signs: Vital Signs Temp Pulse Resp BP Pulse Ox 08/11/21 08:00 97.9 F 73 18 122/77 96 08/11/21 04:00 97.6 F 75 14 118/76 97 08/11/21 00:00 97.4 F 76 16 129/87 97 - Problem List Review Problem List Initiated/Reviewed/Updated: Yes - My Orders Last 24 Hours: Active Orders 24 hr Category Date Time Status Adult Diet [DIET] Diet 08/11/21 Lunch Ordered D5 1/2 NS w/ 20 mEq/L KCl 1,000 ml Med 08/11/21 00:00 Active IV Q13H Medication Orders Acetaminophen (Acetaminophen 325 Mg Tab) 650 mg PO Q6H PRN PRN Reason: Pain Last Admin: 08/09/21 16:09 Dose: 650 mg Documented by: Admin: 08/09/21 10:22 Dose: 650 mg Documented by: Admin: 08/09/21 03:50 Dose: 650 mg Documented by: Admin: 08/08/21 09:10 Dose: 650 mg Documented by: Admin: 08/08/21 03:04 Dose: 650 mg Documented by: HONG Hydrocodone Bitart/Acetaminophen (Acetaminophen/Hydrocodone 325-5 Mg Tab) 1 tab PO Q4H PRN PRN Reason: Pain (mild 1-3) Last Admin: 08/10/21 06:51 Dose: 1 tab Documented by: Admin: 08/10/21 00:50 Dose: 1 tab Documented by: Admin: 08/09/21 20:42 Dose: 1 tab Documented by: Admin: 08/08/21 22:50 Dose: 1 tab Documented by: Admin: 08/08/21 18:41 Dose: 1 tab Documented by: [id number] Sodium Chloride (Normal Saline) 1,000 mls @ 999 mls/hr IV ASDIRECTED [facility] Last Admin: 08/07/21 17:32 Dose: 999 mls/hr Documented by: BRENDA Piperacillin Sod/Tazobactam (Sod 3.375 gm/ Sodium Chloride) 50 mls @ 100 mls/hr IV Q6H [facility] Stop: 08/12/21 23:59 Last Admin: 08/11/21 07:51 Dose: 100 mls/hr Documented by: Admin: 08/11/21 02:44 Dose: 100 mls/hr Documented by: Admin: 08/10/21 21:58 Dose: 100 mls/hr Documented by: Admin: 08/10/21 14:03 Dose: 100 mls/hr Documented by: Admin: 08/10/21 08:18 Dose: 100 mls/hr Documented by: Admin: 08/10/21 02:04 Dose: 100 mls/hr Documented by: Admin: 08/09/21 20:18 Dose: 100 mls/hr Documented by: Admin: 08/09/21 13:32 Dose: 100 mls/hr Documented by: Admin: 08/09/21 07:56 Dose: 100 mls/hr Documented by: Admin: 08/09/21 02:27 Dose: 100 mls/hr Documented by: Admin: 08/08/21 20:08 Dose: 100 mls/hr Documented by: Admin: 08/08/21 14:28 Dose: 100 mls/hr Documented by: Admin: 08/08/21 08:22 Dose: 100 mls/hr Documented by: Admin: 08/08/21 02:09 Dose: 100 mls/hr Documented by: HONG Potassium Chloride/Dextrose/Sod Cl (D5 1/2 Ns W/ 20 Meq/L Kcl) 1,000 mls @ 50 mls/hr IV Q13H ANA LILIA Last Admin: 08/11/21 02:33 Dose: 75 mls/hr Documented by: PRASANTH Ibuprofen (Ibuprofen 600 Mg Tab) 600 mg PO Q6H PRN PRN Reason: Pain Last Admin: 08/11/21 06:31 Dose: 600 mg Documented by: Admin: 08/10/21 23:41 Dose: 600 mg Documented by: Admin: 08/10/21 17:39 Dose: 600 mg Documented by: Admin: 08/10/21 11:38 Dose: 600 mg Documented by: DANYELLE Morphine Sulfate (Morphine 2 Mg/Ml Syringe) 2 mg IVPUSH Q2H PRN PRN Reason: Abdominal Pain Last Admin: 08/09/21 21:00 Dose: 2 mg Documented by: PRASANTH Nicotine (Nicotine 21 Mg/24 Hr Patch) 21 mg TRDERM DAILY [facility] Last Admin: 08/11/21 07:59 Dose: 21 mg Documented by: Admin: 08/10/21 08:15 Dose: 21 mg Documented by: Admin: 08/09/21 08:00 Dose: 21 mg Documented by: Admin: 08/08/21 09:10 Dose: 21 mg Documented by: GRAZYNA Promethazine HCl (Promethazine 25 Mg/Ml Sdv) 12.5 mg IM Q6H PRN PRN Reason: Nausea Last Admin: 08/09/21 16:10 Dose: 12.5 mg Documented by: Admin: 08/08/21 13:22 Dose: 12.5 mg Documented by: TOBI Sodium Chloride (Sodium Chloride 0.9% 10 Ml Syringe) 10 ml FLUSH ASDIRECTED PRN PRN Reason: Keep Vein Open Last Admin: 08/10/21 08:18 Dose: 10 ml Documented by: Admin: 08/09/21 20:30 Dose: 10 ml Documented by: Admin: 08/09/21 10:23 Dose: 10 ml Documented by: Admin: 08/09/21 08:00 Dose: 10 ml Documented by: Admin: 08/09/21 03:05 Dose: 10 ml Documented by: Admin: 08/09/21 02:30 Dose: 10 ml Documented by: Admin: 08/08/21 20:40 Dose: 10 ml Documented by: Admin: 08/08/21 20:13 Dose: 10 ml Documented by: Admin: 08/08/21 20:06 Dose: 10 ml Documented by: Admin: 08/08/21 02:10 Dose: 10 ml Documented by: HONG Sodium Chloride (Sodium Chloride 0.9% 10 Ml Syringe) 10 ml FLUSH ASDIRECTED PRN PRN Reason: Keep Vein Open Last Admin: 08/08/21 09:11 Dose: 10 ml Documented by: [id number] Admin: 08/08/21 08:23 Dose: 10 ml Documented by: GRAZYNA - Assessment Assessment (Free Text/Narrative):: Doing well, No fevers and WBC back to normal Will advance diet, possibly home tomorrow
[2021-08-11] MEDS: Acetaminophen 325 MG Tab PO PRN (20:04)
[2021-08-11] MEDS: Sodium Chloride 0.9% 10 ML Syringe FLUSH PRN (23:21)
[2021-08-12] MEDS: D5 1/2 NS w/ 20 mEq/L KCl 1,000 ML IV SCH (02:14)
[2021-08-12] MEDS: Piperacillin/Tazobactam 3.375 GM in Sodium Chloride 0.9% 50 ML IV SCH ×2 (02:15→08:18)
[2021-08-12] MEDS: Acetaminophen 325 MG Tab PO PRN (06:40)
[2021-08-12] MEDS: Nicotine 21 MG/24 Hr Patch TRDERM SCH (08:18)
--- NOTE | 2021-08-12 08:46 | PCM.PN ---
- General Info Date of Service: 08/12/21 Subjective Update: Carey is a 51-year-old female but had appendectomy by Dr. Graves. I'm seeing her for rounds this morning in his absence. She complains of mild pain rectally when she passes stool, and at some small blood clots through the rectum is tonight. She has no fever or chills and the pain. She's been eating and drinking well - Review of Systems Pulmonary: Reports: No Symptoms Cardiovascular: Reports: No Symptoms Gastrointestinal: Denies: Abdominal Pain, Constipation, Decreased Appetite, Nausea, Vomiting Genitourinary: Reports: No Symptoms Musculoskeletal: Reports: No Symptoms - Patient Data Vitals - Most Recent: Last Vital Signs Temp 97.3 F 08/12/21 08:00 Pulse 79 08/12/21 08:00 Resp 16 08/12/21 08:00 BP 129/76 08/12/21 08:00 Pulse Ox 98 08/12/21 08:00 Weight - Most Recent: 72.348 kg I&O - Last 24 Hours: Intake & Output 08/11/21 08/12/21 08/12/21 22:59 06:59 14:59 Intake Total 440 435 Balance 440 435 Lab Results Last 24 Hours: Laboratory Results - last 24 hr 08/12/21 Range/Units 06:25 WBC 9.8 (3.0-10.3) x10-3/uL RBC 3.27 L (3.60-5.20) x10(6)uL Hgb 11.4 (11.4-15.5) g/dL Hct 33.7 L (34.2-48.2) % MCV 103.1 H (76.7-100.5) fL MCH 34.8 H (23.9-33.9) pg MCHC 33.7 (31.9-34.8) g/dL RDW 12.4 (12.3-16.5) % Plt Count 298 (151-488) x10(3)uL MPV 8.6 (7.1-12.4) fL Neut % (Auto) 74.7 (30.8-76.2) % Lymph % (Auto) 14.6 L (18.4-52.1) % [place] % (Auto) 7.7 (4.4-15.7) % Eos % (Auto) 2.5 (0.6-8.1) % Baso % (Auto) 0.5 (0.2-1.5) % Neut # (Auto) 7.3 H (1.5-6.3) x10-3/uL Lymph # (Auto) 1.4 (1.0-4.4) x10-3/uL [place] # (Auto) 0.8 (0.3-1.0) x10-3/uL Eos # (Auto) 0.2 (0.0-0.8) x10-3/uL Baso # (Auto) 0.0 (0.0-0.1) x10-3/uL Med Orders - Current: Current Medications Acetaminophen (Acetaminophen 325 Mg Tab) 650 mg PO Q6H PRN PRN Reason: Pain Last Admin: 08/12/21 06:40 Dose: 650 mg Documented by: Hydrocodone Bitart/Acetaminophen (Acetaminophen/Hydrocodone 325-5 Mg Tab) 1 tab PO Q4H PRN PRN Reason: Pain (mild 1-3) Last Admin: 08/10/21 06:51 Dose: 1 tab Documented by: Sodium Chloride (Normal Saline) 1,000 mls @ 999 mls/hr IV ASDIRECTED [facility] Last Admin: 08/07/21 17:32 Dose: 999 mls/hr Documented by: Piperacillin Sod/Tazobactam (Sod 3.375 gm/ Sodium Chloride) 50 mls @ 100 mls/hr IV Q6H [facility] Stop: 08/12/21 23:59 Last Admin: 08/12/21 08:18 Dose: 100 mls/hr Documented by: Potassium Chloride/Dextrose/Sod Cl (D5 1/2 Ns W/ 20 Meq/L Kcl) 1,000 mls @ 50 mls/hr IV Q13H [facility] Last Admin: 08/12/21 02:14 Dose: Not Given Documented by: Ibuprofen (Ibuprofen 600 Mg Tab) 600 mg PO Q6H PRN PRN Reason: Pain Last Admin: 08/11/21 13:41 Dose: 600 mg Documented by: Morphine Sulfate (Morphine 2 Mg/Ml Syringe) 2 mg IVPUSH Q2H PRN PRN Reason: Abdominal Pain Last Admin: 08/09/21 21:00 Dose: 2 mg Documented by: Nicotine (Nicotine 21 Mg/24 Hr Patch) 21 mg TRDERM DAILY [facility] Last Admin: 08/12/21 08:18 Dose: 21 mg Documented by: Promethazine HCl (Promethazine 25 Mg/Ml Sdv) 12.5 mg IM Q6H PRN PRN Reason: Nausea Last Admin: 08/09/21 16:10 Dose: 12.5 mg Documented by: Sodium Chloride (Sodium Chloride 0.9% 10 Ml Syringe) 10 ml FLUSH ASDIRECTED PRN PRN Reason: Keep Vein Open Last Admin: 08/11/21 23:21 Dose: 10 ml Documented by: Sodium Chloride (Sodium Chloride 0.9% 10 Ml Syringe) 10 ml FLUSH ASDIRECTED PRN PRN Reason: Keep Vein Open Last Admin: 08/08/21 09:11 Dose: 10 ml Documented by: Discontinued Medications Cefoxitin Sodium (Cefoxitin 2 Gm Vial) 2 gm IVPUSH ONETIME ONE Stop: 08/07/21 18:42 Last Admin: 08/07/21 18:47 Dose: 2 gm Documented by: Hydromorphone HCl (Hydromorphone 2 Mg/Ml Sdv) 1 mg IVPUSH Q1H PRN PRN Reason: Pain (moderate 4-6) Last Admin: 08/08/21 20:13 Dose: 1 mg Documented by: Lactated Ringer's (Ringers, Lactated) 1,000 mls @ 125 mls/hr IV ASDIRECTED [facility] Last Admin: 08/07/21 19:55 Dose: 125 mls/hr Documented by: Piperacillin Sod/Tazobactam (Sod 3.375 gm/ Sodium Chloride) 50 mls @ 100 mls/hr IV Q6H [facility] Last Admin: 08/08/21 04:49 Dose: Not Given Documented by: Lactated Ringer's (Ringers, Lactated) 1,000 mls @ 125 mls/hr IV ASDIRECTED [facility] Last Infusion: 08/09/21 09:30 Dose: 50 mls/hr Documented by: Potassium Chloride/Dextrose/Sod Cl (D5 1/2 Ns W/ 20 Meq/L Kcl) 1,000 mls @ 75 mls/hr IV ASDIRECTED [facility] Stop: 08/10/21 23:59 Last Infusion: 08/10/21 11:36 Dose: 75 mls/hr Documented by: Iopamidol (Iopamidol 755 Mg/Ml 100 Ml Bottle) 80 ml IV . DIRECTED ONE Stop: 08/07/21 17:09 Last Admin: 08/07/21 17:47 Dose: 80 ml Documented by: Iopamidol (Iopamidol 755 Mg/Ml 100 Ml Bottle) 82 ml IV . DIRECTED ONE Stop: 08/09/21 19:09 Last Admin: 08/09/21 17:00 Dose: 82 ml Documented by: Ketorolac Tromethamine (Ketorolac 30 Mg/Ml Sdv) 30 mg IVPUSH NOW STA Stop: 08/07/21 16:46 Last Admin: 08/07/21 17:32 Dose: 30 mg Documented by: Morphine Sulfate (Morphine 2 Mg/Ml Syringe) 2 mg IVPUSH NOW STA Stop: 08/07/21 16:46 Last Admin: 08/07/21 17:38 Dose: 2 mg Documented by: Ondansetron HCl (Ondansetron 4 Mg/2 Ml Sdv) 4 mg IVPUSH NOW STA Stop: 08/07/21 16:46 Last Admin: 08/07/21 17:32 Dose: 4 mg Documented by: - Exam General: Alert, Oriented, Cooperative Lungs: Clear to Auscultation Cardiovascular: Regular Rate GI/Abdominal Exam: Soft, Non-Tender, Distended. No: Guarding, Rigid, Rebound - Patient Data Lab Results Last 24 hrs: Laboratory Results - last 24 hr 08/12/21 Range/Units 06:25 WBC 9.8 (3.0-10.3) x10-3/uL RBC 3.27 L (3.60-5.20) x10(6)uL Hgb 11.4 (11.4-15.5) g/dL Hct 33.7 L (34.2-48.2) % MCV 103.1 H (76.7-100.5) fL MCH 34.8 H (23.9-33.9) pg MCHC 33.7 (31.9-34.8) g/dL RDW 12.4 (12.3-16.5) % Plt Count 298 (151-488) x10(3)uL MPV 8.6 (7.1-12.4) fL Neut % (Auto) 74.7 (30.8-76.2) % Lymph % (Auto) 14.6 L (18.4-52.1) % [place] % (Auto) 7.7 (4.4-15.7) % Eos % (Auto) 2.5 (0.6-8.1) % Baso % (Auto) 0.5 (0.2-1.5) % Neut # (Auto) 7.3 H (1.5-6.3) x10-3/uL Lymph # (Auto) 1.4 (1.0-4.4) x10-3/uL [place] # (Auto) 0.8 (0.3-1.0) x10-3/uL Eos # (Auto) 0.2 (0.0-0.8) x10-3/uL Baso # (Auto) 0.0 (0.0-0.1) x10-3/uL Result Diagrams: 08/12/21 06:25 08/11/21 06:25 Sepsis Event Note - Evaluation Sepsis Screening Result: No Definite Risk - Focused Exam Vital Signs: Vital Signs Temp Pulse Resp BP Pulse Ox 08/12/21 08:00 97.3 F 79 16 129/76 98 08/12/21 04:00 99.0 F 76 14 144/84 H 97 - Problem List & Annotations (1) S/P appendectomy SNOMED Code(s): 614989296, 30665724, 535817142 Code(s): Z90.49 - ACQUIRED ABSENCE OF OTHER SPECIFIED PARTS OF DIGESTIVE TRACT Status: Acute Current Visit: Yes (2) Tobacco abuse SNOMED Code(s): 326846530 Code(s): Z72.0 - TOBACCO USE Status: Acute Current Visit: Yes - Problem List Review Problem List Initiated/Reviewed/Updated: Yes - Plan Plan:: May go home today. See Dr Graves on Friday
--- NOTE | 2021-08-13 08:42 | CT ---
EXAM: CT ABDOMEN PELVIS WITH IV CONTRAST. INDICATION: Abdominal pain since Friday night, getting worse. TECHNIQUE: Spiral 3.75 mm axial sections were obtained through the abdomen and pelvis with 81 mL Isovue 370 at 2 mL/second with sagittal and coronal reconstructions 08/07/21 - no comparisons. Total exam DLP was 437.71 mGy/cm. FINDINGS: The appendix is enlarged at 13 mm with a 7.8 mm appendicolith impacted at the cecal cap. Findings are compatible with acute appendicitis with peritonitis since there is adjacent fat stranding and fat stranding extending also into the pericolic gutter on the right. 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 Urinary bladder was empty. The kidneys, adrenal glands, liver, gallbladder, spleen, and pancreas appeared normal. Common bile duct was not dilated. No retroperitoneal mass was seen. Minimal aortic calcification is noted as well as iliac artery calcification. No evidence of free air or bowel obstruction was identified. No evidence of abscess formation was noted in the area of the appendicitis. No other organomegaly, mass lesions or free fluid collections were identified in the abdomen or pelvis. The heart appeared normal in size. No pericardial effusion was seen. No active infiltrate or effusion was seen in the lower lung eric visualized. Bilateral breast implants were noted. IMPRESSION: Appendicitis with peritonitis. No abscess or free air. Post hysterectomy. Minimal ASD. Report was called to Dr. Solano at approximately 1800 hours 08/07/21. [facility]
--- NOTE | 2021-08-14 08:30 | PCM.DCSUM1 ---
Discharge Summary - Hospital Course HPI Initial Comments: Patient admitted Tu08/07/21 for perforated appendicitis Brief History: Presented to Urgent care wit 3 day history of abd pain, CT shows acute appendicitis - Discharge Data Discharge Date: 08/12/21 Discharge Disposition: Home, Self-Care 01 Condition: Stable - Referral to Home Health Primary Care Physician: Latonya Naik PA-C - Patient Summary/Data Operative Procedure(s) Performed: Lap appy Recommended Follow-up Testing/Procedures: Dr Graves 08/14/21 Hospital Course: Post op patient had fevers until POD # 2. WBC returned to normal after 4 days. Tolerated diet and ready for discharge on POD# 5 - Patient Instructions Diet: Usual Diet as Tolerated Activity: No Lifting Over 20 Pounds (for 2 weeks) Showering/Bathing: May Shower Wound/Incision Care: Keep Operative Site/Wound Site Clean and Dry - Discharge Plan Prescriptions/Med Rec: Nicotine [Habitrol] 21 mg TRDERM DAILY #30 patch Home Medications: Home Meds atorvaSTATin [Lipitor] 20 mg PO BEDTIME 08/07/21 [History] Nicotine [Habitrol] 21 mg TRDERM DAILY #30 patch 08/12/21 [Rx] Patient Handouts: Laparoscopic Appendectomy, Adult, Care After, [id number] Forms: ED Department Discharge Referrals: Latonya Naik PA-C [Primary Care Provider] - Garrett Graves MD [Emergency Provider] - - Discharge Summary/Plan Comment DC Time >30 min.: No Total # of Minutes for Discharge Time: 10 - Patient Data Vitals - Most Recent: Last Vital Signs Temp 97.3 F 08/12/21 08:00 Pulse 79 08/12/21 08:00 Resp 16 08/12/21 08:00 BP 129/76 08/12/21 08:00 Pulse Ox 98 08/12/21 08:00 Weight - Most Recent: 72.348 kg Med Orders - Current: Current Medications Discontinued Medications Acetaminophen (Acetaminophen 325 Mg Tab) 650 mg PO Q6H PRN PRN Reason: Pain Last Admin: 08/12/21 06:40 Dose: 650 mg Documented by: Hydrocodone Bitart/Acetaminophen (Acetaminophen/Hydrocodone 325-5 Mg Tab) 1 tab PO Q4H PRN PRN Reason: Pain (mild 1-3) Last Admin: 08/10/21 06:51 Dose: 1 tab Documented by: Cefoxitin Sodium (Cefoxitin 2 Gm Vial) 2 gm IVPUSH ONETIME ONE Stop: 08/07/21 18:42 Last Admin: 08/07/21 18:47 Dose: 2 gm Documented by: Hydromorphone HCl (Hydromorphone 2 Mg/Ml Sdv) 1 mg IVPUSH Q1H PRN PRN Reason: Pain (moderate 4-6) Last Admin: 08/08/21 20:13 Dose: 1 mg Documented by: Sodium Chloride (Normal Saline) 1,000 mls @ 999 mls/hr IV ASDIRECTED [facility] Last Admin: 08/07/21 17:32 Dose: 999 mls/hr Documented by: Lactated Ringer's (Ringers, Lactated) 1,000 mls @ 125 mls/hr IV ASDIRECTED [facility] Last Admin: 08/07/21 19:55 Dose: 125 mls/hr Documented by: Piperacillin Sod/Tazobactam (Sod 3.375 gm/ Sodium Chloride) 50 mls @ 100 mls/hr IV Q6H [facility] Last Admin: 08/08/21 04:49 Dose: Not Given Documented by: Lactated Ringer's (Ringers, Lactated) 1,000 mls @ 125 mls/hr IV ASDIRECTED [facility] Last Infusion: 08/09/21 09:30 Dose: 50 mls/hr Documented by: Piperacillin Sod/Tazobactam (Sod 3.375 gm/ Sodium Chloride) 50 mls @ 100 mls/hr IV Q6H [facility] Stop: 08/12/21 23:59 Last Admin: 08/12/21 08:18 Dose: 100 mls/hr Documented by: Potassium Chloride/Dextrose/Sod Cl (D5 1/2 Ns W/ 20 Meq/L Kcl) 1,000 mls @ 75 mls/hr IV ASDIRECTED [facility] Stop: 08/10/21 23:59 Last Infusion: 08/10/21 11:36 Dose: 75 mls/hr Documented by: Potassium Chloride/Dextrose/Sod Cl (D5 1/2 Ns W/ 20 Meq/L Kcl) 1,000 mls @ 50 mls/hr IV Q13H [facility] Last Admin: 08/12/21 02:14 Dose: Not Given Documented by: Ibuprofen (Ibuprofen 600 Mg Tab) 600 mg PO Q6H PRN PRN Reason: Pain Last Admin: 08/11/21 13:41 Dose: 600 mg Documented by: Iopamidol (Iopamidol 755 Mg/Ml 100 Ml Bottle) 80 ml IV . DIRECTED ONE Stop: 08/07/21 17:09 Last Admin: 08/07/21 17:47 Dose: 80 ml Documented by: Iopamidol (Iopamidol 755 Mg/Ml 100 Ml Bottle) 82 ml IV . DIRECTED ONE Stop: 08/09/21 19:09 Last Admin: 08/09/21 17:00 Dose: 82 ml Documented by: Ketorolac Tromethamine (Ketorolac 30 Mg/Ml Sdv) 30 mg IVPUSH NOW STA Stop: 08/07/21 16:46 Last Admin: 08/07/21 17:32 Dose: 30 mg Documented by: Morphine Sulfate (Morphine 2 Mg/Ml Syringe) 2 mg IVPUSH NOW STA Stop: 08/07/21 16:46 Last Admin: 08/07/21 17:38 Dose: 2 mg Documented by: Morphine Sulfate (Morphine 2 Mg/Ml Syringe) 2 mg IVPUSH Q2H PRN PRN Reason: Abdominal Pain Last Admin: 08/09/21 21:00 Dose: 2 mg Documented by: Nicotine (Nicotine 21 Mg/24 Hr Patch) 21 mg TRDERM DAILY [facility] Last Admin: 08/12/21 08:18 Dose: 21 mg Documented by: Ondansetron HCl (Ondansetron 4 Mg/2 Ml Sdv) 4 mg IVPUSH NOW STA Stop: 08/07/21 16:46 Last Admin: 08/07/21 17:32 Dose: 4 mg Documented by: Promethazine HCl (Promethazine 25 Mg/Ml Sdv) 12.5 mg IM Q6H PRN PRN Reason: Nausea Last Admin: 08/09/21 16:10 Dose: 12.5 mg Documented by: Sodium Chloride (Sodium Chloride 0.9% 10 Ml Syringe) 10 ml FLUSH ASDIRECTED PRN PRN Reason: Keep Vein Open Last Admin: 08/11/21 23:21 Dose: 10 ml Documented by: Sodium Chloride (Sodium Chloride 0.9% 10 Ml Syringe) 10 ml FLUSH ASDIRECTED PRN PRN Reason: Keep Vein Open Last Admin: 08/08/21 09:11 Dose: 10 ml Documented by:
== END 2021-08-12 10:15 | disposition home or self-care (01) | DRG 225 ==
LOC: FB.SDS 16:29 → FB.MS 21:04
PROVIDERS: ADMIT Surgery; ATTEND Surgery
PROC: 0DTJ4ZZ Resection of Appendix, Percutaneous Endoscopic Approach (ICD-10-PCS; principal; 2021-08-07)
DX: K35.32 Acute appendicitis with perforation, localized peritonitis, and gangrene, without abscess (principal); Z79.899 Other long term (current) drug therapy; Z20.822 Contact with and (suspected) exposure to COVID-19
CPT/HCPCS: 00840-QZ; 36415; 74177; 80048; 80053; 81001; 82150; 83690; 85025; 88304; 94150; A9270-GY; J0131; J0330; J0694; J1100; J1170; J1885; J2250; J2270; J2405; J2543; J2550; J2704; J2710; J3010; J3480; J3490; J7030; J7120; Q9967; U0002